=== PATIENT | female | born 2000 | race Caucasian/White ===

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

== ENCOUNTER 2020-08-30 15:11 | Emergency (ER) | payer OTHER ==
--- NOTE | 2020-08-30 15:16 | ERPHSYRPT ---
- History of Present Illness Time Seen by Provider: 08/30/20 15:16 Historian: patient, family Exam Limitations: no limitations Physician History: This is a 20-year-old white female who presents with vomiting and abdominal pain for approximately 2 to 3 days. Patient states that she consumes alcohol multiple times a day and is done so for a number of years to help ease her emotional pain from family issues. In addition, she has a history of IV drug abuse. The last time she used intravenous drugs was 9 days ago. Patient states that her symptoms are worsening over the last few days. She denies shortness of breath. She denies chest pain. Her pain is intermittently sharp in the bilateral upper quadrants and epigastric region. She is also noticed jaundice and tea colored urine. Patient has had no prior abdominal surgeries. Timing/Duration: day(s) (3) Quality: sharpness Abdominal Pain Onset Location: RUQ, LUQ, epigastric Pain Radiation: no radiation Severity of Pain-Max: moderate Severity of Pain-Current: moderate Modifying Factors: Improves With: vomiting Associated Symptoms: loss of appetite, nausea, vomiting, No fever/chills Previous symptoms: no prior history Allergies/Adverse Reactions: No Known Drug Allergies Allergy (Verified 08/30/20 15:22) Home Medications: No Reportable Medications [No Reported Medications] 08/30/20 [History] Hx Tetanus, Diphtheria Vaccination/Date Given: Yes Hx Influenza Vaccination/Date Given: Yes Hx Pneumococcal Vaccination/Date Given: No Travel Risk - International Travel Have you traveled outside of the country in past 3 weeks: No - Coronavirus Screening Are you exhibiting any of the following symptoms?: No Close contact with a COVID-19 positive Pt in past 14-21 Days: No - Review of Systems Constitutional: No Symptoms Eyes: No Symptoms Ears, Nose, & Throat: No Symptoms Respiratory: No Symptoms Cardiac: No Symptoms Abdominal/Gastrointestinal: Abdominal Pain, Nausea Genitourinary Symptoms: Other (Dark urine) Musculoskeletal: No Symptoms Skin: Other (Jaundiced) Neurological: No Symptoms Psychological: No Symptoms, No Suicidal Ideations Endocrine: No Symptoms Hematologic/Lymphatic: No Symptoms Immunological/Allergic: No Symptoms All Other Systems: Reviewed and Negative - Past Medical History Pertinent Past Medical History: No Neurological History: No Pertinent History ENT History: No Pertinent History Cardiac History: No Pertinent History Respiratory History: No Pertinent History Endocrine Medical History: No Pertinent History Musculoskeletal History: No Pertinent History GI Medical History: No Pertinent History History: No Pertinent History Psycho-Social History: No Pertinent History Female Reproductive Disorders: No Pertinent History - Past Surgical History Past Surgical History: Yes Neuro Surgical History: No Pertinent History Cardiac: No Pertinent History Respiratory: No Pertinent History Gastrointestinal: No Pertinent History Genitourinary: No Pertinent History Musculoskeletal: No Pertinent History Female Surgical History: No Pertinent History Other Surgical History: tonsils - Social History Smoking Status: Current every day smoker How long have you smoked: 4 years Exposure to second hand smoke: Yes Drug Use: none Patient Lives Alone: No - Nursing Vital Signs Nursing Vital Signs: Initial Vital Signs Blood Pressure 129/74 08/30/20 15:24 Pain Scale Pain Intensity 0 - Physical Exam General Appearance: no apparent distress, alert, anxiety Eye Exam: scleral icterus Ears, Nose, Throat Exam: normal ENT inspection, dry mucous membranes Neck Exam: normal inspection, non-tender, supple, full range of motion Respiratory Exam: normal breath sounds, lungs clear, airway intact, No chest tenderness, No respiratory distress Cardiovascular Exam: regular rate/rhythm, normal heart sounds, normal peripheral pulses Gastrointestinal/Abdomen Exam: soft, normal bowel sounds, tenderness (Bilateral upper quadrant and epigastric area), guarding, No rebound Pelvic Exam: not done Rectal Exam: not done Back Exam: normal inspection, normal range of motion, No CVA tenderness, No vertebral tenderness Extremity Exam: normal inspection, normal range of motion, pelvis stable Neurologic Exam: alert, oriented x 3, cooperative, pin chaser II-XII nml as tested, normal mood/affect, nml cerebellar function, nml station & gait, sensation nml Skin Exam: jaundice Lymphatic Exam: No adenopathy SpO2 Interpretation: normal O2 Delivery: Room Air - Course Nursing assessment & vital signs reviewed: Yes Ordered Tests: Active Orders 24 hr Category Date Time Status IV Insertion STAT Care 08/30/20 15:42 Active ABDOMEN AND PELVIS W/0 CONTRAS [CT] Stat Exams 08/30/20 15:42 Taken AMYLASE Stat Lab 08/30/20 15:35 Completed CBC W DIFF Stat Lab 08/30/20 15:35 Completed CMP Stat Lab 08/30/20 15:35 Completed CULTURE,URINE Stat Lab 08/30/20 16:10 Received ETHYL ALCOHOL Stat Lab 08/30/20 15:35 Completed HCG,QUALITATIVE URINE Stat Lab 08/30/20 15:45 Completed LIPASE Stat Lab 08/30/20 15:35 Completed Lactic Acid Stat Lab 08/30/20 15:42 Completed Manual Differential NC Stat Lab 08/30/20 15:35 Completed UA W/RFX UR CULTURE Stat Lab 08/30/20 16:10 Completed Urine Triage Profile Stat Lab 08/30/20 15:45 Completed Medication Summary Discontinued Medications Generic Name Dose Route Start Last Admin Trade Name Oscarq PRN Reason Stop Dose Admin Sodium Chloride 1,000 mls @ 999 mls/hr 08/30/20 15:42 08/30/20 17:02 Sodium Chloride 0.9% 1000 Ml IV 08/30/20 16:42 Infused .Q1H1M STA Infusion Sodium Chloride Confirm 08/30/20 15:50 Sodium Chloride 0.9% 1000 Ml Administered 08/30/20 15:51 Dose 1,000 mls @ ud .ROUTE .STK-MED ONE Ondansetron HCl 4 mg 08/30/20 15:42 08/30/20 15:56 Zofran 4 Mg/2 Ml Vial IV 08/30/20 15:43 4 mg STAT ONE Administration Ondansetron HCl Confirm 08/30/20 15:50 Zofran 4 Mg/2 Ml Vial Administered 08/30/20 15:51 Dose 4 mg .ROUTE .STK-MED ONE Pantoprazole Sodium 40 mg 08/30/20 15:42 08/30/20 15:55 Protonix 40 Mg Iv IV 08/30/20 15:43 40 mg STAT ONE Administration Pantoprazole Sodium Confirm 08/30/20 15:50 Protonix 40 Mg Iv Administered 08/30/20 15:51 Dose 40 mg IV .STK-MED ONE Potassium Chloride 10 meq 08/30/20 17:24 08/30/20 17:35 Klor Con 10 Meq PO 08/30/20 17:25 10 meq STAT ONE Administration Potassium Chloride Confirm 08/30/20 17:33 Klor Con 10 Meq Administered 08/30/20 17:34 Dose 10 meq PO .STK-MED ONE Lab/Rad Data: Laboratory Result Diagrams 08/30/20 15:35 08/30/20 15:35 Laboratory Results 08/30/20 08/30/20 08/30/20 Range/Units 16:10 15:45 15:45 WBC (4.0-10.5) K/mm3 RBC (4.1-5.4) M/mm3 Hgb (12.0-16.0) gm/dl Hct (35-47) % MCV (78-100) fl MCH (26-32) pg MCHC (32-36) g/dl RDW (11.5-14.0) % Plt Count (150-450) K/mm3 MPV (7.5-11.0) fl Sodium (137-145) mmol/L Potassium (3.5-5.1) mmol/L Chloride (98-107) mmol/L Carbon Dioxide (22-30) mmol/L Anion Gap (5-15) MEQ/L BUN (7-17) mg/dL Creatinine (0.52-1.04) mg/dL Estimated GFR ML/MIN Glucose (74-106) mg/dL Lactic Acid (0.4-2.0) Calcium (8.4-10.2) mg/dL Total Bilirubin (0.2-1.3) mg/dL AST (14-36) U/L ALT (0-35) U/L Alkaline Phosphatase (38-126) U/L Serum Total Protein (6.3-8.2) g/dL Albumin (3.5-5.0) g/dL Amylase (30-110) U/L Lipase (23-300) U/L Urine Color NEREYDA (YELLOW) Urine Appearance CLOUDY (CLEAR) Urine pH 6.0 (5-6) Ur Specific [place] 1.014 (1.005-1.025) Urine Protein NEGATIVE (Negative) Urine Ketones NEGATIVE (NEGATIVE) Urine Blood NEGATIVE (0-5) Vincent/ul Urine Nitrite NEGATIVE (NEGATIVE) Urine Bilirubin MODERATE (NEGATIVE) Urine Urobilinogen 4 (0-1) mg/dL Ur Leukocyte Esterase SMALL (NEGATIVE) Urine WBC (Auto) 16-25 (0-5) /HPF Urine RBC (Auto) 3-5 (0-2) /HPF U Epithel Cells (Auto) FEW (FEW) /HPF Urine Bacteria (Auto) RARE (NEGATIVE) /HPF Unidentified Crystals 5-10 (NEGATIVE) /HPF Urine Mucus (Auto) SLIGHT (NEGATIVE) /HPF Urine Yeast (Budding) Rare (NEGATIVE) /HPF Urine Culture Reflexed YES (NO) Urine Glucose NEGATIVE (NEGATIVE) mg/dL Urine HCG, Qual NEGATIVE (Negative) Urine Opiates Level NEGATIVE (NEGATIVE) Ur Methadone NEGATIVE (NEGATIVE) Urine Barbiturates NEGATIVE (NEGATIVE) Ur Phencyclidine (PCP) NEGATIVE (NEGATIVE) Urine Amphetamine POSITIVE (NEGATIVE) U Benzodiazepine Level POSITIVE (NEGATIVE) Urine Cocaine NEGATIVE (NEGATIVE) Urine Marijuana (THC) POSITIVE (NEGATIVE) Ethyl Alcohol (0-10) mg/dL 08/30/20 08/30/20 08/30/20 Range/Units 15:42 15:35 15:35 WBC (4.0-10.5) K/mm3 RBC (4.1-5.4) M/mm3 Hgb (12.0-16.0) gm/dl Hct (35-47) % MCV (78-100) fl MCH (26-32) pg MCHC (32-36) g/dl RDW (11.5-14.0) % Plt Count (150-450) K/mm3 MPV (7.5-11.0) fl Sodium 138 (137-145) mmol/L Potassium 3.0 L (3.5-5.1) mmol/L Chloride 101 (98-107) mmol/L Carbon Dioxide 32 H (22-30) mmol/L Anion Gap 9.1 (5-15) MEQ/L BUN 5 L (7-17) mg/dL Creatinine 0.73 (0.52-1.04) mg/dL Estimated GFR > 60.0 ML/MIN Glucose 84 (74-106) mg/dL Lactic Acid 1.2 (0.4-2.0) Calcium 9.4 (8.4-10.2) mg/dL Total Bilirubin 8.80 H (0.2-1.3) mg/dL AST 406 H (14-36) U/L ALT 1325 H (0-35) U/L Alkaline Phosphatase 191 H (38-126) U/L Serum Total Protein 8.1 (6.3-8.2) g/dL Albumin 4.1 (3.5-5.0) g/dL Amylase 54 (30-110) U/L Lipase 65 (23-300) U/L Urine Color (YELLOW) Urine Appearance (CLEAR) Urine pH (5-6) Ur Specific [place] (1.005-1.025) Urine Protein (Negative) Urine Ketones (NEGATIVE) Urine Blood (0-5) Vincent/ul Urine Nitrite (NEGATIVE) Urine Bilirubin (NEGATIVE) Urine Urobilinogen (0-1) mg/dL Ur Leukocyte Esterase (NEGATIVE) Urine WBC (Auto) (0-5) /HPF Urine RBC (Auto) (0-2) /HPF U Epithel Cells (Auto) (FEW) /HPF Urine Bacteria (Auto) (NEGATIVE) /HPF Unidentified Crystals (NEGATIVE) /HPF Urine Mucus (Auto) (NEGATIVE) /HPF Urine Yeast (Budding) (NEGATIVE) /HPF Urine Culture Reflexed (NO) Urine Glucose (NEGATIVE) mg/dL Urine HCG, Qual (Negative) Urine Opiates Level (NEGATIVE) Ur Methadone (NEGATIVE) Urine Barbiturates (NEGATIVE) Ur Phencyclidine (PCP) (NEGATIVE) Urine Amphetamine (NEGATIVE) U Benzodiazepine Level (NEGATIVE) Urine Cocaine (NEGATIVE) Urine Marijuana (THC) (NEGATIVE) Ethyl Alcohol < 10 (0-10) mg/dL 08/30/20 Range/Units 15:35 WBC 5.8 (4.0-10.5) K/mm3 RBC 4.81 (4.1-5.4) M/mm3 Hgb 15.1 (12.0-16.0) gm/dl Hct 45.1 (35-47) % MCV 93.8 (78-100) fl MCH 31.4 (26-32) pg MCHC 33.5 (32-36) g/dl RDW 14.3 H (11.5-14.0) % Plt Count 184 (150-450) K/mm3 MPV 10.5 (7.5-11.0) fl Sodium (137-145) mmol/L Potassium (3.5-5.1) mmol/L Chloride (98-107) mmol/L Carbon Dioxide (22-30) mmol/L Anion Gap (5-15) MEQ/L BUN (7-17) mg/dL Creatinine (0.52-1.04) mg/dL Estimated GFR ML/MIN Glucose (74-106) mg/dL Lactic Acid (0.4-2.0) Calcium (8.4-10.2) mg/dL Total Bilirubin (0.2-1.3) mg/dL AST (14-36) U/L ALT (0-35) U/L Alkaline Phosphatase (38-126) U/L Serum Total Protein (6.3-8.2) g/dL Albumin (3.5-5.0) g/dL Amylase (30-110) U/L Lipase (23-300) U/L Urine Color (YELLOW) Urine Appearance (CLEAR) Urine pH (5-6) Ur Specific [place] (1.005-1.025) Urine Protein (Negative) Urine Ketones (NEGATIVE) Urine Blood (0-5) Vincent/ul Urine Nitrite (NEGATIVE) Urine Bilirubin (NEGATIVE) Urine Urobilinogen (0-1) mg/dL Ur Leukocyte Esterase (NEGATIVE) Urine WBC (Auto) (0-5) /HPF Urine RBC (Auto) (0-2) /HPF U Epithel Cells (Auto) (FEW) /HPF Urine Bacteria (Auto) (NEGATIVE) /HPF Unidentified Crystals (NEGATIVE) /HPF Urine Mucus (Auto) (NEGATIVE) /HPF Urine Yeast (Budding) (NEGATIVE) /HPF Urine Culture Reflexed (NO) Urine Glucose (NEGATIVE) mg/dL Urine HCG, Qual (Negative) Urine Opiates Level (NEGATIVE) Ur Methadone (NEGATIVE) Urine Barbiturates (NEGATIVE) Ur Phencyclidine (PCP) (NEGATIVE) Urine Amphetamine (NEGATIVE) U Benzodiazepine Level (NEGATIVE) Urine Cocaine (NEGATIVE) Urine Marijuana (THC) (NEGATIVE) Ethyl Alcohol (0-10) mg/dL - Progress Progress: improved Progress Note: 08/30/20 18:04 Patient states she is feeling much better after IV hydration. She is tolerating liquid diet. CAT scan of the abdomen pelvis reveals thickening of the gallbladder wall more prominent along the margin adjacent to the liver this could be due to adjacent liver disease and related to adjacent hepatitis. There is periportal lucencies/periportal edema. This may be seen in hepatitis hepatic venous occlusion IV fluid status. Medical decision making: This patient is improving with IV hydration. She does have elevated liver function test. Her history suggests hepatitis as the diagnosis. The CAT scan findings are consistent with this. Patient desires to be discharged to home. We will repeat the laboratory data on TuesdaySeptember 01, 2020 and send the results to her primary care doctor, Dr. Castro. Patient is to call Dr. Castro's office on Tuesday to obtain the results and further management instructions. Counseled pt/family regarding: lab results, diagnosis, need for follow-up, rad results - Departure Departure Disposition: Home Clinical Impression: Elevated liver function tests, UTI (urinary tract infection), Hypokalemia, Alcohol abuse, Methamphetamine abuse, Marijuana use, Jaundice due to hepatitis Condition: Stable Critical Care Time: No Referrals: OBDULIA CASTRO MD [Primary Care Provider] - Additional Instructions: Avoid illicit drug use. Avoid alcohol ingestion. Take medication as prescribed. Drink plenty of clear liquids. Call Dr. Castro's office on Tuesday, September 01 in the morning after obtaining your blood work on September 01 in the morning. Return to the emergency department if symptoms worsen.
[2020-08-30] MEDS ORDERED: PROTONIX 40 MG IV IV ONE ×2 (15:42→15:50)
[2020-08-30] MEDS ORDERED: Sodium Chloride 0.9% 1000 ML 1,000 ML IV STA (15:42)
[2020-08-30] MEDS ORDERED: Zofran 4 MG/2 ML VIAL IV ONE (15:42)
[2020-08-30] MEDS ORDERED: Sodium Chloride 0.9% 1000 ML 1,000 ML ONE (15:50)
[2020-08-30] MEDS ORDERED: Zofran 4 MG/2 ML VIAL ONE (15:50)
[2020-08-30 16:07] LABS: Hematocrit 45.1 % (35-47); Hemoglobin 15.1 gm/dl (12.0-16.0); Mean Cell Volume 93.8 fl (78-100); Mean Corpuscular Hemoglobin 31.4 pg (26-32); Mean Corpuscular Hgb Concent. 33.5 g/dl (32-36); Mean Platelet Volume 10.5 fl (7.5-11.0); Platelet Count 184 K/mm3 (150-450); Red Blood Count 4.81 M/mm3 (4.1-5.4); Red Cell Distribution Width 14.3 % (11.5-14.0); White Blood Count 5.8 K/mm3 (4.0-10.5)
[2020-08-30 16:11] LABS: Appearance CLOUDY (CLEAR); Bacteria RARE /HPF (NEGATIVE); Bilirubin MODERATE (NEGATIVE); Blood NEGATIVE Ery/ul (0-5); Epithelial Cells FEW /HPF (FEW); Glucose NEGATIVE (NEGATIVE); Ketones NEGATIVE (NEGATIVE); Leukocyte Esterase SMALL (NEGATIVE); Mucus SLIGHT /HPF (NEGATIVE); Nitrite NEGATIVE (NEGATIVE); Protein,Urine Dip NEGATIVE (Negative); Specific Gravity 1.014 (1.005-1.025); Urobilinogen 4 mg/dL (0-1)
[2020-08-30 16:14] LABS: Budding Yeast Rare /HPF (NEGATIVE)
[2020-08-30 16:17] LABS: ALBUMIN 4.1 g/dL (3.5-5.0); ALKALINE PHOSPHATASE 191 U/L (38-126); AMYLASE 54 U/L (30-110); ANION GAP 9.1 MEQ/L (5-15); BLOOD UREA NITROGEN 5 mg/dL (7-17); CHLORIDE 101 mmol/L (98-107); Calcium 9.4 mg/dL (8.4-10.2); Carbon Dioxide 32 mmol/L (22-30); Creatinine 1 0.73 mg/dL (0.52-1.04); EST GLOMERULAR FILTRATION RATE > 60.0 ML/MIN; Glucose 84 mg/dL (74-106); LIPASE 65 U/L (23-300); SGOT/AST 406 U/L (14-36); SODIUM 138 mmol/L (137-145); Total Protein 8.1 g/dL (6.3-8.2)
[2020-08-30 16:20] LABS: Barbiturate,Urine NEGATIVE (NEGATIVE); Benzodiazepine,Urine POSITIVE (NEGATIVE); Cocaine,Urine NEGATIVE (NEGATIVE); Methadone,Urine NEGATIVE (NEGATIVE); Opiate,Urine NEGATIVE (NEGATIVE); PCP,Urine NEGATIVE (NEGATIVE); THC,Urine POSITIVE (NEGATIVE)
[2020-08-30 16:37] LABS: SGPT/ALT 1325 U/L (0-35)
[2020-08-30 17:11] LABS: Amphetamine,Urine POSITIVE (NEGATIVE)
[2020-08-30] MEDS ORDERED: Klor Con 10 MEQ PO ONE ×2 (17:24→17:33)
[2020-08-30 18:35] LABS: Basophil 4 % (0.0-1.0); Eosinophil 2 % (0.00-3.0); Lymphocytes 51 % (24-44); Monocyte 17 % (0.0-12.0); Neutrophils 26 % (36.0-66.0); Platelet Estimate NORMAL (NORMAL); Total Cells Counted 100
[2020-08-30 18:41] VITALS: BP 112/58; PULSE 75; O2SAT 98
--- NOTE | 2020-08-30 20:27 | XRAY ---
Indication: Abdomen pain. Jaundice. Multiple contiguous axial images obtained through the abdomen and pelvis without contrast as ordered. Comparison: None Lung bases demonstrates minimal dependent atelectasis. No infiltrate or effusion. Heart is not enlarged. Stomach is distended with food/fluid. Noncontrasted stomach and bowel loops appear nonobstructed. Normal appendix. Moderately distended gallbladder with circumferential wall thickening. No gallstones. Liver is enlarged measuring 19.6 cm and suggestions for periportal edema. Spleen is enlarged measuring 15.9 cm. No free fluid/air. Remaining liver, gallbladder, pancreas, spleen, adrenal glands, kidneys, ureters, bladder, uterus, and aorta appear unremarkable for noncontrast exam. Osseous structures intact. No ventral or inguinal hernias. Impression: 1. Hepatosplenomegaly. 2. Distended gallbladder with wall thickening. 3. Suspect periportal edema. Gallbladder/right upper quadrant sonogram may yield further information. Comment: Preliminary interpretation was made by [facility]. No critical discrepancy.
== END 2020-08-30 18:28 | disposition home or self-care (01) ==
LOC: ED 15:11
DX: R94.5 Abnormal results of liver function studies (principal); N39.0 Urinary tract infection, site not specified; E87.6 Hypokalemia; F10.10 Alcohol abuse, uncomplicated; F19.10 Other psychoactive substance abuse, uncomplicated; R17 Unspecified jaundice; Z79.899 Other long term (current) drug therapy; R11.2 Nausea with vomiting, unspecified; R10.11 Right upper quadrant pain; R10.12 Left upper quadrant pain; R10.13 Epigastric pain
CPT/HCPCS: 36000; 36415; 74176; 80053; 80074; 80307; 81001; 82150; 83605; 83690; 84703; 85025; 87086; 96360; 96374; 96375; 99284; J2405; A9270-GY; G0480

== ENCOUNTER 2021-03-25 11:07 | Emergency (ER) | payer OTHER ==
--- NOTE | 2021-03-25 11:43 | ERPHSYRPT ---
- History of Present Illness Historian: patient Patient Subjective Stated Complaint: Vaginal bleeding and cramping x 2 days Triage Nursing Assessment: Patient presents to room A & OX3, GCS 15. Skin slightly pale, slightly diaphoretic. Ambulatory without assistance. Slightly tachycardic. Pt reports active vaginal bleeding, states saturates 2-3 pads hour. Passing clots. Reports lower pelvic cramping as well as bilateral flank pain. Urine sample noted to be slightly cloudy, reports urinary frequency. Currently on what she believes is mensus, but did not receive depo shot in January and reports this is first possible mensus in months. Bleeding started 03/16/2021. Heavy bleeding and cramping started on 03/23/2021. Reports emesis this morning, no active vomiting at this time. Reports nausea. Patient cooperative, appears anxious. Physician History: 20 yo wf w pelvic cramping and bleeding x9 days. Pt's last Depo injection was in Oct, and she missed the January injection. She has had N/V/dysuria/diaphoresis wo hematuria/fever/diarrhea. Pain is mod-severe. Timing/Duration: other (9days) Activities at Onset: rest Quality: cramping Abdominal Pain Onset Location: suprapubic Pain Radiation: no radiation Severity of Pain-Max: severe Severity of Pain-Current: severe Modifying Factors: Improves With: nothing Associated Symptoms: diaphoresis, nausea, vomiting, No back, No chest pain, No diarrhea, No fever/chills, No fatigue, No headache, No heartburn, No loss of appetite, No neck pain, No rash, No shortness of breath, No syncope, No weakness Previous symptoms: no prior history Allergies/Adverse Reactions: No Known Drug Allergies Allergy (Verified 03/25/21 11:23) Hx Tetanus, Diphtheria Vaccination/Date Given: Yes Hx Influenza Vaccination/Date Given: Yes Hx Pneumococcal Vaccination/Date Given: No Travel Risk - International Travel Have you traveled outside of the country in past 3 weeks: No - Coronavirus Screening Are you exhibiting any of the following symptoms?: No Close contact with a COVID-19 positive Pt in past 14-21 Days: No - Vaccine Status Have you recieved a Covid-19 vaccination: No - Review of Systems Constitutional: No Symptoms Eyes: No Symptoms Ears, Nose, & Throat: No Symptoms Respiratory: No Symptoms Cardiac: No Symptoms Abdominal/Gastrointestinal: Nausea, Vomiting Genitourinary Symptoms: No Symptoms Musculoskeletal: No Symptoms Skin: No Symptoms Neurological: No Symptoms Psychological: No Symptoms Endocrine: No Symptoms Hematologic/Lymphatic: No Symptoms Immunological/Allergic: No Symptoms - Past Medical History Pertinent Past Medical History: No Neurological History: No Pertinent History ENT History: No Pertinent History Cardiac History: No Pertinent History Respiratory History: No Pertinent History Endocrine Medical History: No Pertinent History Musculoskeletal History: No Pertinent History GI Medical History: No Pertinent History History: No Pertinent History Psycho-Social History: No Pertinent History Female Reproductive Disorders: No Pertinent History - Past Surgical History Past Surgical History: Yes Neuro Surgical History: No Pertinent History Cardiac: No Pertinent History Respiratory: No Pertinent History Gastrointestinal: No Pertinent History Genitourinary: No Pertinent History Musculoskeletal: No Pertinent History Female Surgical History: No Pertinent History Other Surgical History: tonsils - Social History Smoking Status: Current every day smoker How long have you smoked: 4 years Exposure to second hand smoke: Yes Drug Use: none Patient Lives Alone: No - Female History Hx Last Menstrual Period: 03/16/2021 Hx Now: (unsure) - Nursing Vital Signs Nursing Vital Signs: Initial Vital Signs Temperature 98.0 F 03/25/21 11:16 Pulse Rate 115 H 03/25/21 11:16 Respiratory Rate 18 03/25/21 11:16 Blood Pressure 142/101 03/25/21 11:16 O2 Sat by Pulse Oximetry 100 03/25/21 11:16 Pain Scale Pain Intensity 2 - Physical Exam General Appearance: no apparent distress Eye Exam: PERRL/EOMI, eyes nml inspection Ears, Nose, Throat Exam: normal ENT inspection, TMs normal, pharynx normal, moist mucous membranes Neck Exam: normal inspection, non-tender, supple, full range of motion, No meningismus, No mass, No Brudzinski, No Kernig's Respiratory Exam: normal breath sounds, lungs clear, airway intact, No respira tory distress Cardiovascular Exam: tachycardia Gastrointestinal/Abdomen Exam: soft, tenderness (Mild-mod supra-pubic ttp) Back Exam: normal inspection, normal range of motion, No CVA tenderness Extremity Exam: normal inspection, normal range of motion, No pelvis stable Neurologic Exam: alert, oriented x 3, cooperative, 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 as tested, normal mood/affect, nml station & gait, sensation nml, No motor deficits, No sensory deficit Skin Exam: normal color, warm, dry Lymphatic Exam: No inguinal node tender (L) SpO2 Interpretation: normal SpO2: 100 O2 Delivery: Room Air Ordered Tests: Active Orders 24 hr Category Date Time Status IV Insertion STAT Care 03/25/21 11:53 Completed CBC W DIFF Stat Lab 03/25/21 11:20 Completed CULTURE,URINE Stat Lab 03/25/21 11:28 Received HCG,QUALITATIVE URINE Stat Lab 03/25/21 11:28 Completed UA W/RFX UR CULTURE Stat Lab 03/25/21 11:28 Completed Medication Summary Discontinued Medications Generic Name Dose Route Start Last Admin Trade Name Freq PRN Reason Stop Dose Admin Ceftriaxone Sodium/Dextrose 1 g in 50 mls @ 100 mls/hr 03/25/21 11:57 03/25/21 12:06 Rocephin 1 Gm-D5w 50 Ml Bag IV 03/25/21 12:26 50 mls/hr STAT STA 50 mls/hr Administration Ceftriaxone Sodium/Dextrose Confirm 03/25/21 12:02 Rocephin 1 Gm-D5w 50 Ml Bag Administered 03/25/21 12:03 Dose 1 g in 50 mls @ ud IV .STK-MED ONE Ketorolac Tromethamine 30 mg 03/25/21 11:44 03/25/21 11:46 Toradol 30 Mg Injection IV 03/25/21 11:45 30 mg STAT ONE Administration Ketorolac Tromethamine Confirm 03/25/21 11:45 Toradol 30 Mg Injection Administered 03/25/21 11:46 Dose 30 mg .ROUTE .STK-MED ONE Ondansetron HCl 4 mg 03/25/21 11:44 03/25/21 11:47 Zofran 4 Mg/2 Ml Vial IV 03/25/21 11:45 4 mg STAT ONE Administration Ondansetron HCl Confirm 03/25/21 11:46 Zofran 4 Mg/2 Ml Vial Administered 03/25/21 11:47 Dose 4 mg .ROUTE .STK-MED ONE Lab/Rad Data: Laboratory Result Diagrams 03/25/21 11:20 Laboratory Results 03/25/21 03/25/21 03/25/21 Range/Units 11:28 11:28 11:20 WBC 15.7 H (4.0-10.5) K/mm3 RBC 4.47 (4.1-5.4) M/mm3 Hgb 14.0 (12.0-16.0) gm/dl Hct 43.1 (35-47) % MCV 96.4 (78-100) fl MCH 31.3 (26-32) pg MCHC 32.5 (32-36) g/dl RDW 13.0 (11.5-14.0) % Plt Count 277 (150-450) K/mm3 MPV 9.3 (7.5-11.0) fl Gran % 83.6 H (36.0-66.0) % Eos # (Auto) 0.07 (0-0.5) Absolute Lymphs (auto) 1.29 (1.0-4.6) Absolute Monos (auto) 1.19 (0.0-1.3) Lymphocytes % 8.2 L (24.0-44.0) % Monocytes % 7.6 (0.0-12.0) % Eosinophils % 0.4 (0.00-5.0) % Basophils % 0.2 (0.0-0.4) % Absolute Granulocytes 13.07 H (1.4-6.9) Basophils # 0.03 (0-0.4) Urine Color NEREYDA (YELLOW) Urine Appearance CLOUDY (CLEAR) Urine pH 7.0 (5-6) Ur Specific [place] 1.016 (1.005-1.025) Urine Protein 100 (Negative) Urine Ketones NEGATIVE (NEGATIVE) Urine Blood LARGE (0-5) Vincent/ul Urine Nitrite NEGATIVE (NEGATIVE) Urine Bilirubin NEGATIVE (NEGATIVE) Urine Urobilinogen NEGATIVE (0-1) mg/dL Ur Leukocyte Esterase MODERATE (NEGATIVE) Urine WBC (Auto) 51-100 (0-5) /HPF Urine RBC (Auto) 51-100 (0-2) /HPF U Epithel Cells (Auto) MODERATE (FEW) /HPF Urine Bacteria (Auto) RARE (NEGATIVE) /HPF Urine Mucus (Auto) SLIGHT (NEGATIVE) /HPF Urine Culture Reflexed YES (NO) Urine Glucose NEGATIVE (NEGATIVE) mg/dL Urine HCG, Qual NEGATIVE (Negative) - Progress Progress: improved Progress Note: 03/25/21 12:20 30mg IV Toradol w improvement 1gm IV Rocephin Counseled pt/family regarding: lab results, diagnosis, need for follow-up - Departure Departure Disposition: Home Clinical Impression: UTI (urinary tract infection), Vaginal bleeding Condition: Stable Critical Care Time: No Referrals: OBDULIA CASTRO MD [Primary Care Provider] - Instructions: Urinary Tract Infection, Adult (DC), Acute Abdomen (Belly Pain), Heavy Periods (DC) Additional Instructions: Fluids Toradol for pain Start Bactrim twice a day Follow up with your family MD or Ob Return to ER for increasing pain or temperature greate than 100.5 Prescriptions: Smz/Tmp Ds Tablet [Bactrim Ds Tablet] 1 tab PO Q12H #10 tablet Ketorolac Tromethamine [Toradol] 10 mg PO BID PRN #10 tablet PRN Reason: Pain
[2021-03-25] MEDS ORDERED: TORAdol 30 mg Injection IV ONE (11:44)
[2021-03-25] MEDS ORDERED: Zofran 4 MG/2 ML VIAL IV ONE (11:44)
[2021-03-25] MEDS ORDERED: TORAdol 30 mg Injection ONE (11:45)
[2021-03-25] MEDS ORDERED: Zofran 4 MG/2 ML VIAL ONE (11:46)
[2021-03-25 11:48] LABS: Appearance CLOUDY (CLEAR); Bacteria RARE /HPF (NEGATIVE); Bilirubin NEGATIVE (NEGATIVE); Blood LARGE Ery/ul (0-5); Epithelial Cells MODERATE /HPF (FEW); Glucose NEGATIVE (NEGATIVE); Ketones NEGATIVE (NEGATIVE); Leukocyte Esterase MODERATE (NEGATIVE); Mucus SLIGHT /HPF (NEGATIVE); Nitrite NEGATIVE (NEGATIVE); Protein,Urine Dip 100 (Negative); RBC 51-100 /HPF (0-2); Specific Gravity 1.016 (1.005-1.025); Urobilinogen NEGATIVE mg/dL (0-1); WBC 51-100 /HPF (0-5)
[2021-03-25] MEDS ORDERED: ROCEPHIN 1 Gm-D5w 50 ml Bag** 1 G/50 ML IVPB IV STA (11:57)
[2021-03-25 11:58] LABS: Absolute Neutrophil Ct (ANC) 13.07 (1.4-6.9); BASOPHIL % 0.2 % (0.0-0.4); Basophil (Absolute #) 0.03 (0-0.4); Eosinophil % 0.4 % (0.00-5.0); Eosinophil (Absolute #) 0.07 (0-0.5); Hematocrit 43.1 % (35-47); Lymphocyte (Absolute #) 1.29 (1.0-4.6); Lymphocytes % 8.2 % (24.0-44.0); Mean Cell Volume 96.4 fl (78-100); Mean Corpuscular Hemoglobin 31.3 pg (26-32); Mean Corpuscular Hgb Concent. 32.5 g/dl (32-36); Mean Platelet Volume 9.3 fl (7.5-11.0); Monocyte (Absolute #) 1.19 (0.0-1.3); Monocytes % 7.6 % (0.0-12.0); Neutrophil % 83.6 % (36.0-66.0); Platelet Count 277 K/mm3 (150-450); Red Blood Count 4.47 M/mm3 (4.1-5.4); White Blood Count 15.7 K/mm3 (4.0-10.5)
[2021-03-25] MEDS ORDERED: ROCEPHIN 1 Gm-D5w 50 ml Bag** 1 G/50 ML IVPB IV ONE (12:02)
[2021-03-25 12:30] VITALS: BP 139/92; PULSE 96
[2021-03-25 21:13] VITALS: O2SAT 100
== END 2021-03-25 12:35 | disposition home or self-care (01) ==
LOC: ED 11:07
DX: N39.0 Urinary tract infection, site not specified (principal); N93.9 Abnormal uterine and vaginal bleeding, unspecified
CPT/HCPCS: 36000; 36415; 81001; 84703; 85025; 87086; 96365; 96374; 96375; 99284; J0696; J1885; J2405

== ENCOUNTER 2021-12-02 13:20 | Observation (INO) | payer OTHER ==
--- NOTE | 2021-12-02 14:12 | XRAY ---
Indication: Abscess. Targeted left breast ultrasound demonstrates a 3.8 x 5.7 x 4.7 cm irregular shaped fluid collection with low-level internal echoes and hyperemic color flow favoring clinically reported abscess. Axilla demonstrates a 1.6 x 1.2 x 1.6 cm reactive lymph node.
--- NOTE | 2021-12-02 14:18 | ERPHSYRPT ---
- History of Present Illness Time Seen by Provider: 12/02/21 13:30 Source: patient Exam Limitations: no limitations Patient Subjective Stated Complaint: Pt c/o of left breast swelling a month ago for about a week and then went down for a week and then developed a hard knot with pain and swelling which has caused redness, heat, and caused her nipple to invert which has been for the past 2 weeks Triage Nursing Assessment: Pt was brought to the ER by a friend, tachycardic, rates pain 6/10, left breast is hot to the touch, swollen, red and hard, the nipple is inverted, pt states that it has been this way for the past 2 weeks and is causing pain, pt has attempted heating pads, placed vicks on it and neosporin with no relief, pt has a 2 year old but has never breast fed, no other problems at this time Physician History: Patient is a 21-year-old female presents to our ED with complaints of left breast pain. Patient states pain started approximately 2 weeks ago and has progressed in intensity. Patient also states the breast is getting bigger. Patient has some tenderness in the left axilla. Patient reports her nipple is everted. No nipple drainage or discharge. No fever. Left breast is very tender. Symptoms are mild to moderate in intensity. Palpation reproduces symptoms. Pain improved with rest. Patient voices no other complaints concerns at this time. Timing/Duration: week(s) (2 weeks) Severity: moderate Modifying Factors: Improves With: other (Left breast palpation reproduces pain.) Associated Symptoms: denies symptoms Allergies/Adverse Reactions: No Known Drug Allergies Allergy (Verified 12/02/21 13:37) Home Medications: No Reportable Medications [No Reported Medications] 12/02/21 [History] Hx Tetanus, Diphtheria Vaccination/Date Given: Yes Hx Influenza Vaccination/Date Given: Yes Hx Pneumococcal Vaccination/Date Given: No Travel Risk - International Travel Have you traveled outside of the country in past 3 weeks: No - Coronavirus Screening Are you exhibiting any of the following symptoms?: No Close contact with a COVID-19 positive Pt in past 14-21 Days: No - Vaccine Status Have you recieved a Covid-19 vaccination: No - Review of Systems Constitutional: No Symptoms, No Fever, No Chills Eyes: No Symptoms Ears, Nose, & Throat: No Symptoms Respiratory: No Symptoms, No Cough, No Dyspnea Cardiac: No Symptoms, No Chest Pain, No Edema, No Syncope Abdominal/Gastrointestinal: No Symptoms, No Abdominal Pain, No Nausea, No Vomiting, No Diarrhea Genitourinary Symptoms: No Symptoms, No Dysuria Musculoskeletal: No Symptoms, No Back Pain, No Neck Pain Skin: No Symptoms, No Rash Neurological: No Symptoms, No Dizziness, No Focal Weakness, No Sensory Changes Psychological: No Symptoms Endocrine: No Symptoms Hematologic/Lymphatic: No Symptoms Immunological/Allergic: No Symptoms All Other Systems: Reviewed and Negative - Past Medical History Pertinent Past Medical History: No Neurological History: No Pertinent History ENT History: No Pertinent History Cardiac History: No Pertinent History Respiratory History: No Pertinent History Endocrine Medical History: No Pertinent History Musculoskeletal History: No Pertinent History GI Medical History: No Pertinent History History: No Pertinent History Psycho-Social History: No Pertinent History Female Reproductive Disorders: No Pertinent History - Past Surgical History Past Surgical History: Yes Neuro Surgical History: No Pertinent History Cardiac: No Pertinent History Respiratory: No Pertinent History Gastrointestinal: No Pertinent History Genitourinary: No Pertinent History Musculoskeletal: No Pertinent History Female Surgical History: No Pertinent History Other Surgical History: tonsils - Social History Smoking Status: Current every day smoker How long have you smoked: 4 years Exposure to second hand smoke: Yes Drug Use: none Patient Lives Alone: No - Female History Hx Now: No (depo) - Nursing Vital Signs Nursing Vital Signs: Initial Vital Signs Temperature 97.6 F 12/02/21 13:26 Pulse Rate 110 H 12/02/21 13:26 Blood Pressure 136/63 12/02/21 13:26 O2 Sat by Pulse Oximetry 99 12/02/21 13:26 Pain Scale Pain Intensity [] 6 Pain Intensity 7 - Physical Exam General Appearance: no apparent distress, alert Eye Exam: PERRL/EOMI, eyes nml inspection Ears, Nose, Throat Exam: normal ENT inspection, TMs normal, pharynx normal, moist mucous membranes Neck Exam: normal inspection, non-tender, supple, full range of motion Respiratory Exam: normal breath sounds, lungs clear, airway intact, No chest tenderness, No respiratory distress Cardiovascular Exam: regular rate/rhythm, normal heart sounds, normal peripheral pulses Gastrointestinal/Abdomen Exam: soft, normal bowel sounds, No tenderness, No distention, No mass Back Exam: normal inspection, normal range of motion, No CVA tenderness, No vertebral tenderness Extremity Exam: normal inspection, normal range of motion, pelvis stable Neurologic Exam: alert, oriented x 3, cooperative, normal mood/affect, nml cereb ellar function, nml station & gait, sensation nml, No motor deficits Skin Exam: normal color, warm, dry, other (Left breast is tender swollen mildly erythematous with a palpable mass approximate the size of a baseball), No rash Lymphatic Exam: adenopathy, axilla node tender (L) (Tenderness left axillary lymphadenopathy.) SpO2 Interpretation: normal SpO2: 99 O2 Delivery: Room Air - Course Nursing assessment & vital signs reviewed: Yes - Radiology Ultrasound Exam Other Ultrasound: tele radiology report (Targeted left breast ultrasound demonstrates a 3.8 x 5.7 x 4.7 cm irregular shaped fluid collection with low-level internal echoes and hyperemic color flow favoring clinically reported abscess. Axilla demonstrates a 1.6 x 1.2 x 1.6 reactive lymphadenopathy.) Ordered Tests: Active Orders 24 hr Category Date Time Status IV Insertion STAT Care 12/02/21 14:12 Active BREAST-UNILATERAL [US] Stat Exams 12/02/21 Completed BLOOD CULTURE Stat Lab 12/02/21 14:26 Received CBC W DIFF Stat Lab 12/02/21 14:26 Completed CMP Stat Lab 12/02/21 14:26 Completed HCG,QUALITATIVE URINE Stat Lab 12/02/21 14:12 Ordered Lactic Acid Stat Lab 12/02/21 15:00 Completed Urine Triage Profile Stat Lab 12/02/21 14:13 Ordered Medication Summary Discontinued Medications Generic Name Dose Route Start Last Admin Trade Name Freq PRN Reason Stop Dose Admin Piperacillin Sod/Tazobactam 100 mls @ 200 mls/hr 12/02/21 14:20 12/02/21 14:34 Sod 3.375 gm/ Sodium Chloride IV 12/02/21 14:49 200 mls/hr STAT ONE Administration Sodium Chloride Confirm 12/02/21 14:32 Sodium Chloride 100ml Mini-Bag Plus Administered 12/02/21 14:33 Dose 100 mls @ ud IV .STK-MED ONE Morphine Sulfate 4 mg 12/02/21 14:34 Morphine Sulfate 4 Mg/Ml Injection IV 12/02/21 14:35 STAT ONE Ondansetron HCl 4 mg 12/02/21 14:34 Ondansetron Hcl 4 Mg/2 Ml Vial IV 12/02/21 14:35 STAT ONE Piperacillin Sod/Tazobactam Sod Confirm 12/02/21 14:32 Piperacillin/Tazobactam Sodium 3.375 Gm Vial Administered 12/02/21 14:33 Dose 3.375 gm IV .STK-MED ONE Lab/Rad Data: Laboratory Result Diagrams 12/02/21 14:26 12/02/21 14:26 Laboratory Results 12/02/21 12/02/21 12/02/21 Range/Units 15:00 14:40 14:26 WBC (4.0-10.5) K/mm3 RBC (4.1-5.4) M/mm3 Hgb (12.0-16.0) gm/dl Hct (35-47) % MCV (78-100) fl MCH (26-32) pg MCHC (32-36) g/dl RDW (11.5-14.0) % Plt Count (150-450) K/mm3 MPV (7.5-11.0) fl Gran % (36.0-66.0) % Eos # (Auto) (0-0.5) Absolute Lymphs (auto) (1.0-4.6) Absolute Monos (auto) (0.0-1.3) Lymphocytes % (24.0-44.0) % Monocytes % (0.0-12.0) % Eosinophils % (0.00-5.0) % Basophils % (0.0-0.4) % Absolute Granulocytes (1.4-6.9) Basophils # (0-0.4) Sodium 140 (137-145) mmol/L Potassium 3.9 (3.5-5.1) mmol/L Chloride 108 H (98-107) mmol/L Carbon Dioxide 24 (22-30) mmol/L Anion Gap 12.3 (5-15) MEQ/L BUN 10 (7-17) mg/dL Creatinine 0.85 (0.52-1.04) mg/dL Estimated GFR > 60.0 ML/MIN Glucose 102 (74-106) mg/dL Lactic Acid 1.0 (0.4-2.0) Calcium 9.0 (8.4-10.2) mg/dL Total Bilirubin 0.30 (0.2-1.3) mg/dL AST 20 (14-36) U/L ALT 15 (0-35) U/L Alkaline Phosphatase 76 (38-126) U/L Serum Total Protein 6.7 (6.3-8.2) g/dL Albumin 3.9 (3.5-5.0) g/dL Influenza Type A Ag NEGATIVE (NEGATIVE) Influenza Type B Ag NEGATIVE (NEGATIVE) RSV (PCR) NEGATIVE (Negative) SARS-CoV-2 (PCR) NEGATIVE (NEGATIVE) 12/02/21 Range/Units 14:26 WBC 11.5 H (4.0-10.5) K/mm3 RBC 3.91 L (4.1-5.4) M/mm3 Hgb 12.8 (12.0-16.0) gm/dl Hct 38.8 (35-47) % MCV 99.2 (78-100) fl MCH 32.7 H (26-32) pg MCHC 33.0 (32-36) g/dl RDW 12.2 (11.5-14.0) % Plt Count 309 (150-450) K/mm3 MPV 9.2 (7.5-11.0) fl Gran % 68.5 H (36.0-66.0) % Eos # (Auto) 0.15 (0-0.5) Absolute Lymphs (auto) 2.42 (1.0-4.6) Absolute Monos (auto) 1.04 (0.0-1.3) Lymphocytes % 21.0 L (24.0-44.0) % Monocytes % 9.0 (0.0-12.0) % Eosinophils % 1.3 (0.00-5.0) % Basophils % 0.2 (0.0-0.4) % Absolute Granulocytes 7.91 H (1.4-6.9) Basophils # 0.02 (0-0.4) Sodium (137-145) mmol/L Potassium (3.5-5.1) mmol/L Chloride (98-107) mmol/L Carbon Dioxide (22-30) mmol/L Anion Gap (5-15) MEQ/L BUN (7-17) mg/dL Creatinine (0.52-1.04) mg/dL Estimated GFR ML/MIN Glucose (74-106) mg/dL Lactic Acid (0.4-2.0) Calcium (8.4-10.2) mg/dL Total Bilirubin (0.2-1.3) mg/dL AST (14-36) U/L ALT (0-35) U/L Alkaline Phosphatase (38-126) U/L Serum Total Protein (6.3-8.2) g/dL Albumin (3.5-5.0) g/dL Influenza Type A Ag (NEGATIVE) Influenza Type B Ag (NEGATIVE) RSV (PCR) (Negative) SARS-CoV-2 (PCR) (NEGATIVE) - Progress Progress: improved Progress Note: Case discussed with Dr. Shankar Dean who is planning on taking patient to the OR tomorrow afternoon. We will admit patient to medicine service initiate antibiotics. Covid test pending. Plan of care discussed with patient. She agrees to admission [facility] for further evaluation and treatment. 12/02/21 14:29 Covid test negative. Case discussed with Dr. Avelar who accepts admission to observation. 12/02/21 16:00 Counseled pt/family regarding: lab results, diagnosis, rad results - Departure Departure Disposition: Observation Clinical Impression: Breast abscess, Leukocytosis Condition: Stable Critical Care Time: No Referrals: KRYS AVELAR MD [Primary Care Provider] - Follow up/PCP as directed
[2021-12-02] MEDS ORDERED: Zosyn 3.375 GM Vial 3.375 GM in Sodium Chloride 100ML MINI-BAG PLUS 100 ML IV ONE (14:20)
[2021-12-02] MEDS ORDERED: Sodium Chloride 100ML MINI-BAG PLUS 100 ML IV ONE (14:32)
[2021-12-02] MEDS ORDERED: Zosyn 3.375 GM Vial IV ONE (14:32)
[2021-12-02] MEDS ORDERED: MORPHINE SULFATE 4 MG INJ IV ONE (14:34)
[2021-12-02] MEDS ORDERED: Zofran 4 MG/2 ML VIAL IV ONE (14:34)
[2021-12-02 14:38] LABS: Absolute Neutrophil Ct (ANC) 7.91 (1.4-6.9); Basophil (Absolute #) 0.02 (0-0.4); Eosinophil % 1.3 % (0.00-5.0); Eosinophil (Absolute #) 0.15 (0-0.5); Hematocrit 38.8 % (35-47); Hemoglobin 12.8 gm/dl (12.0-16.0); Lymphocyte (Absolute #) 2.42 (1.0-4.6); Mean Cell Volume 99.2 fl (78-100); Mean Corpuscular Hemoglobin 32.7 pg (26-32); Mean Platelet Volume 9.2 fl (7.5-11.0); Monocyte (Absolute #) 1.04 (0.0-1.3); Neutrophil % 68.5 % (36.0-66.0); Platelet Count 309 K/mm3 (150-450); Red Blood Count 3.91 M/mm3 (4.1-5.4); Red Cell Distribution Width 12.2 % (11.5-14.0); White Blood Count 11.5 K/mm3 (4.0-10.5)
[2021-12-02 15:02] LABS: ALBUMIN 3.9 g/dL (3.5-5.0); ALKALINE PHOSPHATASE 76 U/L (38-126); ANION GAP 12.3 MEQ/L (5-15); BLOOD UREA NITROGEN 10 mg/dL (7-17); CHLORIDE 108 mmol/L (98-107); Carbon Dioxide 24 mmol/L (22-30); Creatinine 1 0.85 mg/dL (0.52-1.04); EST GLOMERULAR FILTRATION RATE > 60.0 ML/MIN; Glucose 102 mg/dL (74-106); Potassium 3.9 mmol/L (3.5-5.1); SGOT/AST 20 U/L (14-36); SGPT/ALT 15 U/L (0-35); SODIUM 140 mmol/L (137-145); Total Protein 6.7 g/dL (6.3-8.2)
[2021-12-02 15:31] LABS: INFLUENZA A NEGATIVE (NEGATIVE); INFLUENZA B NEGATIVE (NEGATIVE); RESPIRATORY SYNCTIAL VIRUS NEGATIVE (Negative); SARS-CoV-2 Xpert Express NEGATIVE (NEGATIVE)
[2021-12-02] MEDS ORDERED: Zofran 4 MG/2 ML VIAL ONE (16:01)
[2021-12-02] MEDS ORDERED: MORPHINE SULFATE 4 MG INJ ONE (16:01)
[2021-12-02] MEDS ORDERED: Zofran 4 MG/2 ML VIAL IV PRN (16:49)
[2021-12-02 16:57] LABS: Barbiturate,Urine NEGATIVE (NEGATIVE); Benzodiazepine,Urine NEGATIVE (NEGATIVE); Cocaine,Urine NEGATIVE (NEGATIVE); Methadone,Urine NEGATIVE (NEGATIVE); Opiate,Urine NEGATIVE (NEGATIVE); PCP,Urine NEGATIVE (NEGATIVE); THC,Urine POSITIVE (NEGATIVE)
[2021-12-02] MEDS ORDERED: Nicoderm CQ 21 MG TOP SCH (17:30)
[2021-12-02] MEDS: Sodium Chloride 0.9% 1000 ML 1,000 ML IV SCH (17:30)
[2021-12-02 17:44] LABS: Amphetamine,Urine POSITIVE (NEGATIVE)
[2021-12-02] MEDS: MORPHINE SULFATE 4 MG INJ IV PRN ×2 (19:44→23:57)
--- NOTE | 2021-12-02 20:08 | PCM.CONS ---
History of Present Illness - Reason for Consult Chief Complaint: BREAST ABSCESS, BREAST PAIN, LEUKOCYTOSIS Requesting Provider: KRYS AVELAR Consulting Provider: EDA FERRERA MD History of Present Illness: hx per chart review d/w pt and mother at bedside. 21yo female 3 years . hasn't breast fed in years. 1 mo ago some swelling and pain left breast. got a litte better. then get worse again. worsening pain, redness swelling so to ED. no nippled discharge. ":- History of Present Illness Time Seen by Provider: 12/02/21 13:30 Source: patient Exam Limitations: no limitations Patient Subjective Stated Complaint: Pt c/o of left breast swelling a month ago for about a week and then went down for a week and then developed a hard knot with pain and swelling which has caused redness, heat, and caused her nipple to invert which has been for the past 2 weeks Triage Nursing Assessment: Pt was brought to the ER by a friend, tachycardic, rates pain 6/10, left breast is hot to the touch, swollen, red and hard, the nipple is inverted, pt states that it has been this way for the past 2 weeks and is causing pain, pt has attempted heating pads, placed vicks on it and neosporin with no relief, pt has a 2 year old but has never breast fed, no other problems at this time Physician History: Patient is a 21-year-old female presents to our ED with complaints of left breast pain. Patient states pain started approximately 2 weeks ago and has progressed in intensity. Patient also states the breast is getting bigger. Patient has some tenderness in the left axilla. Patient reports her nipple is everted. No nipple drainage or discharge. No fever. Left breast is very tender. Symptoms are mild to moderate in intensity. Palpation reproduces symptoms. Pain improved with rest. Patient voices no other complaints concerns at this time. Timing/Duration: week(s) (2 weeks) Severity: moderate Modifying Factors: Improves With: other (Left breast palpation reproduces pain.) Associated Symptoms: denies symptoms Allergies/Adverse Reactions: No Known Drug Allergies Allergy (Verified 12/02/21 13:37) Home Medications: No Reportable Medications [No Reported Medications] 12/02/21 [History] Hx Tetanus, Diphtheria Vaccination/Date Given: Yes Hx Influenza Vaccination/Date Given: Yes Hx Pneumococcal Vaccination/Date Given: No Travel Risk - International Travel Have you traveled outside of the country in past 3 weeks: No - Coronavirus Screening Are you exhibiting any of the following symptoms?: No Close contact with a COVID-19 positive Pt in past 14-21 Days: No - Vaccine Status Have you recieved a Covid-19 vaccination: No - Review of Systems Constitutional: No Symptoms, No Fever, No Chills Eyes: No Symptoms Ears, Nose, & Throat: No Symptoms Respiratory: No Symptoms, No Cough, No Dyspnea Cardiac: No Symptoms, No Chest Pain, No Edema, No Syncope Abdominal/Gastrointestinal: No Symptoms, No Abdominal Pain, No Nausea, No Vomiting, No Diarrhea Genitourinary Symptoms: No Symptoms, No Dysuria Musculoskeletal: No Symptoms, No Back Pain, No Neck Pain Skin: No Symptoms, No Rash Neurological: No Symptoms, No Dizziness, No Focal Weakness, No Sensory Changes Psychological: No Symptoms Endocrine: No Symptoms Hematologic/Lymphatic: No Symptoms Immunological/Allergic: No Symptoms All Other Systems: Reviewed and Negative - Past Medical History Pertinent Past Medical History: No Neurological History: No Pertinent History ENT History: No Pertinent History Cardiac History: No Pertinent History Respiratory History: No Pertinent History Endocrine Medical History: No Pertinent History Musculoskeletal History: No Pertinent History GI Medical History: No Pertinent History History: No Pertinent History Psycho-Social History: No Pertinent History Female Reproductive Disorders: No Pertinent History - Past Surgical History Past Surgical History: Yes Neuro Surgical History: No Pertinent History Cardiac: No Pertinent History Respiratory: No Pertinent History Gastrointestinal: No Pertinent History Genitourinary: No Pertinent History Musculoskeletal: No Pertinent History Female Surgical History: No Pertinent History Other Surgical History: tonsils - Social History Smoking Status: Current every day smoker How long have you smoked: 4 years Exposure to second hand smoke: Yes Drug Use: none Patient Lives Alone: No - Female History Hx Now: No (depo) " Medications & Allergies Home Medications: Home Medication List No Reportable Medications [No Reported Medications] 12/02/21 [History Confirmed 12/02/21] Allergies/Adverse Reactions: Allergies Allergy/AdvReac Type Severity Reaction Status Date / Time No Known Drug Allergies Allergy Verified 12/02/21 13:37 - Past Medical History Past Medical History: No Neurological History: No Pertinent History ENT History: No Pertinent History Cardiac History: No Pertinent History Respiratory History: No Pertinent History Endocrine Medical History: No Pertinent History Musculoskelatal History: No Pertinent History GI Medical History: No Pertinent History History: No Pertinent History Pyscho-Social History: No Pertinent History Reproductive Disorders: No Pertinent History - Female History Are you now?: No - Past Surgical History Past Surgical History: Yes Neuro Surgical History: No Pertinent History Cardiac History: No Pertinent History Respiratory Surgery: No Pertinent History GI Surgical History: No Pertinent History Genitourinary Surgical Hx: No Pertinent History Musculskeletal Surgical Hx: No Pertinent History Female Surgical History: No Pertinent History Other Surgical History: tonsils - Social History Smoking Status: Current every day smoker How long have you smoked: 5 YEARS Exposure to second hand smoke: No Alcohol: Rarely Drug Use: none - Physical Exam Vital Signs: Vital Signs - 24 hr Temp Pulse Resp BP Pulse Ox 12/02/21 19:56 97.1 F 95 H 17 130/81 98 12/02/21 19:52 97.1 F 95 H 17 130/81 98 12/02/21 16:59 96.5 F 98 H 16 133/72 98 12/02/21 16:50 96.5 F 98 H 16 133/72 98 12/02/21 16:49 99 12/02/21 16:01 99 12/02/21 16:00 96 H 16 136/87 97 12/02/21 15:15 92 H 117/77 98 12/02/21 14:00 100 H 20 121/82 98 12/02/21 13:26 97.6 F 110 H 136/63 99 General Appearance: no apparent distress Neurologic Exam: alert, oriented x 3, normal mood/affect Eye Exam: eyes nml inspection, No scleral icterus Neck Exam: normal inspection Respiratory Exam: No respiratory distress Cardiovascular Exam: regular rate/rhythm Gastrointestinal/Abdomen Exam: soft, No tenderness Pelvic Exam: deferred Rectal Exam: deferred Extremity Exam: normal inspection Skin Exam: warm, dry Additional Findings: 12/02/21 20:07 Left breast some erythema, nipple inversion, palpable fullness central retroareolar ~6cm. Results - Labs Lab/Micro Results: Lab Results-Last 24 Hours 12/02/21 12/02/21 12/02/21 Range/Units 14:26 14:26 14:40 WBC 11.5 H (4.0-10.5) K/mm3 RBC 3.91 L (4.1-5.4) M/mm3 Hgb 12.8 (12.0-16.0) gm/dl Hct 38.8 (35-47) % MCV 99.2 (78-100) fl MCH 32.7 H (26-32) pg MCHC 33.0 (32-36) g/dl RDW 12.2 (11.5-14.0) % Plt Count 309 (150-450) K/mm3 MPV 9.2 (7.5-11.0) fl Gran % 68.5 H (36.0-66.0) % Eos # (Auto) 0.15 (0-0.5) Absolute Lymphs (auto) 2.42 (1.0-4.6) Absolute Monos (auto) 1.04 (0.0-1.3) Lymphocytes % 21.0 L (24.0-44.0) % Monocytes % 9.0 (0.0-12.0) % Eosinophils % 1.3 (0.00-5.0) % Basophils % 0.2 (0.0-0.4) % Absolute Granulocytes 7.91 H (1.4-6.9) Basophils # 0.02 (0-0.4) Sodium 140 (137-145) mmol/L Potassium 3.9 (3.5-5.1) mmol/L Chloride 108 H (98-107) mmol/L Carbon Dioxide 24 (22-30) mmol/L Anion Gap 12.3 (5-15) MEQ/L BUN 10 (7-17) mg/dL Creatinine 0.85 (0.52-1.04) mg/dL Estimated GFR > 60.0 ML/MIN Glucose 102 (74-106) mg/dL Lactic Acid (0.4-2.0) Calcium 9.0 (8.4-10.2) mg/dL Total Bilirubin 0.30 (0.2-1.3) mg/dL AST 20 (14-36) U/L ALT 15 (0-35) U/L Alkaline Phosphatase 76 (38-126) U/L Serum Total Protein 6.7 (6.3-8.2) g/dL Albumin 3.9 (3.5-5.0) g/dL Urine HCG, Qual (Negative) Urine Opiates Level (NEGATIVE) Ur Methadone (NEGATIVE) Urine Barbiturates (NEGATIVE) Ur Phencyclidine (PCP) (NEGATIVE) Urine Amphetamine (NEGATIVE) U Benzodiazepine Level (NEGATIVE) Urine Cocaine (NEGATIVE) Urine Marijuana (THC) (NEGATIVE) Influenza Type A Ag NEGATIVE (NEGATIVE) Influenza Type B Ag NEGATIVE (NEGATIVE) RSV (PCR) NEGATIVE (Negative) SARS-CoV-2 (PCR) NEGATIVE (NEGATIVE) 12/02/21 12/02/21 12/02/21 Range/Units 15:00 16:10 16:10 WBC (4.0-10.5) K/mm3 RBC (4.1-5.4) M/mm3 Hgb (12.0-16.0) gm/dl Hct (35-47) % MCV (78-100) fl MCH (26-32) pg MCHC (32-36) g/dl RDW (11.5-14.0) % Plt Count (150-450) K/mm3 MPV (7.5-11.0) fl Gran % (36.0-66.0) % Eos # (Auto) (0-0.5) Absolute Lymphs (auto) (1.0-4.6) Absolute Monos (auto) (0.0-1.3) Lymphocytes % (24.0-44.0) % Monocytes % (0.0-12.0) % Eosinophils % (0.00-5.0) % Basophils % (0.0-0.4) % Absolute Granulocytes (1.4-6.9) Basophils # (0-0.4) Sodium (137-145) mmol/L Potassium (3.5-5.1) mmol/L Chloride (98-107) mmol/L Carbon Dioxide (22-30) mmol/L Anion Gap (5-15) MEQ/L BUN (7-17) mg/dL Creatinine (0.52-1.04) mg/dL Estimated GFR ML/MIN Glucose (74-106) mg/dL Lactic Acid 1.0 (0.4-2.0) Calcium (8.4-10.2) mg/dL Total Bilirubin (0.2-1.3) mg/dL AST (14-36) U/L ALT (0-35) U/L Alkaline Phosphatase (38-126) U/L Serum Total Protein (6.3-8.2) g/dL Albumin (3.5-5.0) g/dL Urine HCG, Qual NEGATIVE (Negative) Urine Opiates Level NEGATIVE (NEGATIVE) Ur Methadone NEGATIVE (NEGATIVE) Urine Barbiturates NEGATIVE (NEGATIVE) Ur Phencyclidine (PCP) NEGATIVE (NEGATIVE) Urine Amphetamine POSITIVE (NEGATIVE) U Benzodiazepine Level NEGATIVE (NEGATIVE) Urine Cocaine NEGATIVE (NEGATIVE) Urine Marijuana (THC) POSITIVE (NEGATIVE) Influenza Type A Ag (NEGATIVE) Influenza Type B Ag (NEGATIVE) RSV (PCR) (Negative) SARS-CoV-2 (PCR) (NEGATIVE) - Radiology Impressions Radiology Exams & Impressions: Radiology Procedures Category Date Time Status BREAST-UNILATERAL [US] Stat Exams 12/02/21 Completed Assessment/Plan (1) Breast abscess Current Visit: Yes Status: Acute Assessment & Plan: 21yo female with left breast abscess. offered pt percutaneous drainage but likely to need repeat drainages and pt prefers to have I&D. all questions answered. pt understands risk of wound, fistula, etc. -to OR 12/03 for I&D left breast abscess. Code(s): N61.1 - ABSCESS OF THE BREAST AND NIPPLE
[2021-12-02] MEDS: Zosyn 3.375 GM Vial 3.375 GM in Sodium Chloride 100ML MINI-BAG PLUS 100 ML IV SCH (23:12)
[2021-12-03] MEDS: Sodium Chloride 0.9% 1000 ML 1,000 ML IV SCH ×2 (04:01→14:38)
[2021-12-03] MEDS: MORPHINE SULFATE 4 MG INJ IV PRN (05:27)
[2021-12-03] MEDS: Zosyn 3.375 GM Vial 3.375 GM in Sodium Chloride 100ML MINI-BAG PLUS 100 ML IV SCH ×2 (05:27→13:25)
[2021-12-03 05:29] LABS: Absolute Neutrophil Ct (ANC) 6.84 (1.4-6.9); Basophil (Absolute #) 0.02 (0-0.4); Eosinophil % 1.5 % (0.00-5.0); Eosinophil (Absolute #) 0.17 (0-0.5); Hematocrit 38.1 % (35-47); Hemoglobin 12.3 gm/dl (12.0-16.0); Lymphocyte (Absolute #) 3.03 (1.0-4.6); Lymphocytes % 27.5 % (24.0-44.0); Mean Corpuscular Hemoglobin 32.3 pg (26-32); Mean Corpuscular Hgb Concent. 32.3 g/dl (32-36); Mean Platelet Volume 9.1 fl (7.5-11.0); Monocyte (Absolute #) 0.94 (0.0-1.3); Monocytes % 8.5 % (0.0-12.0); Neutrophil % 62.3 % (36.0-66.0); Platelet Count 301 K/mm3 (150-450); Red Blood Count 3.81 M/mm3 (4.1-5.4); Red Cell Distribution Width 12.4 % (11.5-14.0)
[2021-12-03 06:02] LABS: ALBUMIN 3.7 g/dL (3.5-5.0); ALKALINE PHOSPHATASE 74 U/L (38-126); ANION GAP 10.5 MEQ/L (5-15); BLOOD UREA NITROGEN 9 mg/dL (7-17); CHLORIDE 109 mmol/L (98-107); Calcium 8.6 mg/dL (8.4-10.2); Carbon Dioxide 23 mmol/L (22-30); Creatinine 1 0.74 mg/dL (0.52-1.04); EST GLOMERULAR FILTRATION RATE > 60.0 ML/MIN; Glucose 94 mg/dL (74-106); Potassium 3.6 mmol/L (3.5-5.1); SGOT/AST 19 U/L (14-36); SGPT/ALT 14 U/L (0-35); SODIUM 139 mmol/L (137-145); Total Protein 6.9 g/dL (6.3-8.2)
[2021-12-03] MEDS ORDERED: Sensorcaine 0.25% 10 ML ONE (06:58)
[2021-12-03] MEDS ORDERED: Lactated Ringers 1,000 ML IV ONE (06:58)
[2021-12-03] MEDS ORDERED: CEFAZOLIN 2 GM-D5W BAG** 2 GM/50 ML ML IV SCH (08:30)
[2021-12-03] MEDS ORDERED: Lactated Ringers 1,000 ML IV SCH (08:30)
[2021-12-03] MEDS ORDERED: Versed 2 MG/2 ML Injection ONE (11:34)
[2021-12-03] MEDS ORDERED: Xylocaine-Mpf 2% 5 Ml Vial ONE (11:34)
[2021-12-03] MEDS ORDERED: DIPRIVAN 200 MG/20 ML IV ONE (11:34)
[2021-12-03] MEDS ORDERED: SUBLIMAZE 100 MCG/2 ML ONE ×3 (11:35→12:15)
[2021-12-03] MEDS ORDERED: DILAUDID 2 MG INJECTION ONE (12:16)
[2021-12-03] MEDS ORDERED: Zofran 4 MG/2 ML VIAL ONE (12:18)
[2021-12-03] MEDS ORDERED: Decadron 4 MG INJ ONE (12:18)
[2021-12-03] MEDS ORDERED: TORAdol 30 mg Injection ONE (12:21)
--- NOTE | 2021-12-03 12:40 | PCM.HP ---
History of Present Illness - Chief Complaint Chief Complaint: BREAST ABSCESS, BREAST PAIN, LEUKOCYTOSIS History of Present Illness: is a 21 year old female.presents to our ED with complaints of left breast pain. Patient states pain started approximately 2 weeks ago and has progressed in intensity. Patient also states the breast is getting bigger. Patient has some tenderness in the left axilla. Patient reports her nipple is everted. No nipple drainage or discharge. No fever. Left breast is very tender. Symptoms are mild to moderate in intensity. Palpation reproduces symptoms. Pain improved with rest. Patient voices no other complaints concerns at this time. - Review of Systems Constitutional: No Fever, No Chills Eyes: No Symptoms Ears, Nose, & Throat: No Symptoms Respiratory: No Cough, No Short Of Breath Cardiac: No Chest Pain, No Edema, No Syncope Abdominal/Gastrointestinal: No Abdominal Pain, No Nausea, No Vomiting, No Diarrhea Genitourinary Symptoms: No Dysuria Musculoskeletal: No Back Pain, No Neck Pain Skin: Cellulitis (left breast), No Rash Neurological: No Dizziness, No Focal Weakness, No Sensory Changes Psychological: No Symptoms Endocrine: No Symptoms Hematologic/Lymphatic: No Symptoms Immunological/Allergic: No Symptoms Medications & Allergies Home Medications: Home Medication List No Reportable Medications [No Reported Medications] 12/02/21 [History Confirmed 12/02/21] Allergies/Adverse Reactions: Allergies Allergy/AdvReac Type Severity Reaction Status Date / Time No Known Drug Allergies Allergy Verified 12/02/21 13:37 - Past Medical History Past Medical History: No Neurological History: No Pertinent History ENT History: No Pertinent History Cardiac History: No Pertinent History Respiratory History: No Pertinent History Endocrine Medical History: No Pertinent History Musculoskelatal History: No Pertinent History GI Medical History: No Pertinent History History: No Pertinent History Pyscho-Social History: No Pertinent History Reproductive Disorders: No Pertinent History - Female History Are you now?: No - Past Surgical History Past Surgical History: Yes Neuro Surgical History: No Pertinent History Cardiac History: No Pertinent History Respiratory Surgery: No Pertinent History GI Surgical History: No Pertinent History Genitourinary Surgical Hx: No Pertinent History Musculskeletal Surgical Hx: No Pertinent History Female Surgical History: No Pertinent History Other Surgical History: tonsils - Social History Smoking Status: Current every day smoker How long have you smoked: 5 YEARS Exposure to second hand smoke: No Alcohol: Rarely Drug Use: none - Physical Exam Vital Signs: Vital Signs - 24 hr Temp Pulse Resp BP Pulse Ox 12/03/21 09:20 97.0 F 92 H 16 121/79 98 12/03/21 08:00 97.0 F 92 H 16 121/79 98 12/03/21 04:00 97.4 F 93 H 19 121/82 97 12/02/21 23:22 97.9 F 96 H 16 125/87 99 12/02/21 19:56 97.1 F 95 H 17 130/81 98 12/02/21 19:52 97.1 F 95 H 17 130/81 98 12/02/21 16:59 96.5 F 98 H 16 133/72 98 12/02/21 16:50 96.5 F 98 H 16 133/72 98 12/02/21 16:49 99 12/02/21 16:01 99 12/02/21 16:00 96 H 16 136/87 97 12/02/21 15:15 92 H 117/77 98 12/02/21 14:00 100 H 20 121/82 98 12/02/21 13:26 97.6 F 110 H 136/63 99 General Appearance: no apparent distress, alert Neurologic Exam: alert, oriented x 3, cooperative, normal mood/affect, nml cerebellar function, nml station & gait, sensation nml, No motor deficits Eye Exam: PERRL/EOMI, eyes nml inspection Ears, Nose, Throat Exam: normal ENT inspection, TMs normal, pharynx normal, moist mucous membranes Neck Exam: normal inspection, non-tender, supple, full range of motion Respiratory Exam: normal breath sounds, lungs clear, No respiratory distress Cardiovascular Exam: regular rate/rhythm, normal heart sounds, normal peripheral pulses Gastrointestinal/Abdomen Exam: soft, normal bowel sounds, No tenderness, No mass Back Exam: normal inspection, normal range of motion, No CVA tenderness, No vertebral tenderness Extremity Exam: normal inspection, normal range of motion, pelvis stable Skin Exam: normal color, warm, dry, other (left breast abscess), No rash Lymphatic Exam: No adenopathy Results - Labs Lab/Micro Results: Lab Results-Last 24 Hours 12/02/21 12/02/21 12/02/21 Range/Units 14:26 14:26 14:40 WBC 11.5 H (4.0-10.5) K/mm3 RBC 3.91 L (4.1-5.4) M/mm3 Hgb 12.8 (12.0-16.0) gm/dl Hct 38.8 (35-47) % MCV 99.2 (78-100) fl MCH 32.7 H (26-32) pg MCHC 33.0 (32-36) g/dl RDW 12.2 (11.5-14.0) % Plt Count 309 (150-450) K/mm3 MPV 9.2 (7.5-11.0) fl Gran % 68.5 H (36.0-66.0) % Eos # (Auto) 0.15 (0-0.5) Absolute Lymphs (auto) 2.42 (1.0-4.6) Absolute Monos (auto) 1.04 (0.0-1.3) Lymphocytes % 21.0 L (24.0-44.0) % Monocytes % 9.0 (0.0-12.0) % Eosinophils % 1.3 (0.00-5.0) % Basophils % 0.2 (0.0-0.4) % Absolute Granulocytes 7.91 H (1.4-6.9) Basophils # 0.02 (0-0.4) Sodium 140 (137-145) mmol/L Potassium 3.9 (3.5-5.1) mmol/L Chloride 108 H (98-107) mmol/L Carbon Dioxide 24 (22-30) mmol/L Anion Gap 12.3 (5-15) MEQ/L BUN 10 (7-17) mg/dL Creatinine 0.85 (0.52-1.04) mg/dL Estimated GFR > 60.0 ML/MIN Glucose 102 (74-106) mg/dL Lactic Acid (0.4-2.0) Calcium 9.0 (8.4-10.2) mg/dL Total Bilirubin 0.30 (0.2-1.3) mg/dL AST 20 (14-36) U/L ALT 15 (0-35) U/L Alkaline Phosphatase 76 (38-126) U/L Serum Total Protein 6.7 (6.3-8.2) g/dL Albumin 3.9 (3.5-5.0) g/dL Urine HCG, Qual (Negative) Urine Opiates Level (NEGATIVE) Ur Methadone (NEGATIVE) Urine Barbiturates (NEGATIVE) Ur Phencyclidine (PCP) (NEGATIVE) Urine Amphetamine (NEGATIVE) U Benzodiazepine Level (NEGATIVE) Urine Cocaine (NEGATIVE) Urine Marijuana (THC) (NEGATIVE) Influenza Type A Ag NEGATIVE (NEGATIVE) Influenza Type B Ag NEGATIVE (NEGATIVE) RSV (PCR) NEGATIVE (Negative) SARS-CoV-2 (PCR) NEGATIVE (NEGATIVE) 12/02/21 12/02/21 12/02/21 Range/Units 15:00 16:10 16:10 WBC (4.0-10.5) K/mm3 RBC (4.1-5.4) M/mm3 Hgb (12.0-16.0) gm/dl Hct (35-47) % MCV (78-100) fl MCH (26-32) pg MCHC (32-36) g/dl RDW (11.5-14.0) % Plt Count (150-450) K/mm3 MPV (7.5-11.0) fl Gran % (36.0-66.0) % Eos # (Auto) (0-0.5) Absolute Lymphs (auto) (1.0-4.6) Absolute Monos (auto) (0.0-1.3) Lymphocytes % (24.0-44.0) % Monocytes % (0.0-12.0) % Eosinophils % (0.00-5.0) % Basophils % (0.0-0.4) % Absolute Granulocytes (1.4-6.9) Basophils # (0-0.4) Sodium (137-145) mmol/L Potassium (3.5-5.1) mmol/L Chloride (98-107) mmol/L Carbon Dioxide (22-30) mmol/L Anion Gap (5-15) MEQ/L BUN (7-17) mg/dL Creatinine (0.52-1.04) mg/dL Estimated GFR ML/MIN Glucose (74-106) mg/dL Lactic Acid 1.0 (0.4-2.0) Calcium (8.4-10.2) mg/dL Total Bilirubin (0.2-1.3) mg/dL AST (14-36) U/L ALT (0-35) U/L Alkaline Phosphatase (38-126) U/L Serum Total Protein (6.3-8.2) g/dL Albumin (3.5-5.0) g/dL Urine HCG, Qual NEGATIVE (Negative) Urine Opiates Level NEGATIVE (NEGATIVE) Ur Methadone NEGATIVE (NEGATIVE) Urine Barbiturates NEGATIVE (NEGATIVE) Ur Phencyclidine (PCP) NEGATIVE (NEGATIVE) Urine Amphetamine POSITIVE (NEGATIVE) U Benzodiazepine Level NEGATIVE (NEGATIVE) Urine Cocaine NEGATIVE (NEGATIVE) Urine Marijuana (THC) POSITIVE (NEGATIVE) Influenza Type A Ag (NEGATIVE) Influenza Type B Ag (NEGATIVE) RSV (PCR) (Negative) SARS-CoV-2 (PCR) (NEGATIVE) 12/03/21 12/03/21 Range/Units 05:20 05:20 WBC 11.0 H (4.0-10.5) K/mm3 RBC 3.81 L (4.1-5.4) M/mm3 Hgb 12.3 (12.0-16.0) gm/dl Hct 38.1 (35-47) % MCV 100.0 (78-100) fl MCH 32.3 H (26-32) pg MCHC 32.3 (32-36) g/dl RDW 12.4 (11.5-14.0) % Plt Count 301 (150-450) K/mm3 MPV 9.1 (7.5-11.0) fl Gran % 62.3 (36.0-66.0) % Eos # (Auto) 0.17 (0-0.5) Absolute Lymphs (auto) 3.03 (1.0-4.6) Absolute Monos (auto) 0.94 (0.0-1.3) Lymphocytes % 27.5 (24.0-44.0) % Monocytes % 8.5 (0.0-12.0) % Eosinophils % 1.5 (0.00-5.0) % Basophils % 0.2 (0.0-0.4) % Absolute Granulocytes 6.84 (1.4-6.9) Basophils # 0.02 (0-0.4) Sodium 139 (137-145) mmol/L Potassium 3.6 (3.5-5.1) mmol/L Chloride 109 H (98-107) mmol/L Carbon Dioxide 23 (22-30) mmol/L Anion Gap 10.5 (5-15) MEQ/L BUN 9 (7-17) mg/dL Creatinine 0.74 (0.52-1.04) mg/dL Estimated GFR > 60.0 ML/MIN Glucose 94 (74-106) mg/dL Lactic Acid (0.4-2.0) Calcium 8.6 (8.4-10.2) mg/dL Total Bilirubin 0.40 (0.2-1.3) mg/dL AST 19 (14-36) U/L ALT 14 (0-35) U/L Alkaline Phosphatase 74 (38-126) U/L Serum Total Protein 6.9 (6.3-8.2) g/dL Albumin 3.7 (3.5-5.0) g/dL Urine HCG, Qual (Negative) Urine Opiates Level (NEGATIVE) Ur Methadone (NEGATIVE) Urine Barbiturates (NEGATIVE) Ur Phencyclidine (PCP) (NEGATIVE) Urine Amphetamine (NEGATIVE) U Benzodiazepine Level (NEGATIVE) Urine Cocaine (NEGATIVE) Urine Marijuana (THC) (NEGATIVE) Influenza Type A Ag (NEGATIVE) Influenza Type B Ag (NEGATIVE) RSV (PCR) (Negative) SARS-CoV-2 (PCR) (NEGATIVE) - Radiology Impressions Radiology Exams & Impressions: Radiology Procedures Category Date Time Status BREAST-UNILATERAL [US] Stat Exams 12/02/21 Completed Assessment/Plan (1) Breast abscess Current Visit: Yes Status: Acute Assessment & Plan: Chief Complaint Diagnosis BREAST ABSCESS, BREAST PAIN, LEUKOCYTOSIS Allergies Allergy/AdvReac Type Severity Reaction Status Date / Time No Known Drug Allergies Allergy Verified 12/02/21 13:37 Vital Signs (Last 24 hours) Temp Pulse Resp BP Pulse Ox 12/03/21 09:20 97.0 F 92 H 16 121/79 98 12/03/21 08:00 97.0 F 92 H 16 121/79 98 12/03/21 04:00 97.4 F 93 H 19 121/82 97 12/02/21 23:22 97.9 F 96 H 16 125/87 99 12/02/21 19:56 97.1 F 95 H 17 130/81 98 12/02/21 19:52 97.1 F 95 H 17 130/81 98 12/02/21 16:59 96.5 F 98 H 16 133/72 98 12/02/21 16:50 96.5 F 98 H 16 133/72 98 12/02/21 16:49 99 12/02/21 16:01 99 12/02/21 16:00 96 H 16 136/87 97 12/02/21 15:15 92 H 117/77 98 12/02/21 14:00 100 H 20 121/82 98 12/02/21 13:26 97.6 F 110 H 136/63 99 Home Medications Medication Instructions Recorded Confirmed Last Taken Type No Reportable Medications [No 12/02/21 12/02/21 Unknown History Reported Medications] Current Medications Generic Name Dose Route Start Last Admin Trade Name Freq PRN Reason Stop Dose Admin Sodium Chloride 1,000 mls @ 100 mls/hr 12/02/21 16:49 12/03/21 04:01 Sodium Chloride 0.9% 1000 Ml IV 01/01/22 16:48 100 mls/hr .Q10H JESSICA Administration Piperacillin Sod/Tazobactam 100 mls @ 200 mls/hr 12/03/21 00:00 12/03/21 05:27 Sod 3.375 gm/ Sodium Chloride IV 12/06/21 00:00 200 mls/hr Q6HT JESSICA Administration Lactated Ringer's 1,000 mls @ 30 mls/hr 12/03/21 08:30 12/03/21 10:37 Lactated Ringers IV 01/02/22 08:29 30 mls/hr .Q24H JESSICA Administration Cefazolin Sodium/Dextrose 2 gm in 50 mls @ 100 mls/hr 12/03/21 08:30 12/03/21 10:37 Cefazolin 2 Gm-D5w Bag IV 12/04/21 16:00 100 mls/hr ONCALLTOOR JESSICA Administration Morphine Sulfate 4 mg 12/02/21 16:49 12/03/21 05:27 Morphine Sulfate 4 Mg/Ml Injection IV 12/07/21 16:48 4 mg Q4H PRN PRN Administration PAIN Nicotine 21 mg 12/02/21 17:30 12/02/21 17:30 Nicotine 21 Mg/Patch Patch TOP 01/01/22 17:29 21 mg Q24H JESSICA Administration Ondansetron HCl 4 mg 12/02/21 16:49 12/02/21 19:49 Ondansetron Hcl 4 Mg/2 Ml Vial IV 01/01/22 16:48 4 mg Q6H PRN PRN Administration NAUSEA/VOMITING Discontinued Medications Generic Name Dose Route Start Last Admin Trade Name Soheila PRN Reason Stop Dose Admin Bupivacaine HCl Confirm 12/03/21 06:58 Bupivacaine Hcl 2.5 Mg/Ml 10 Ml Administered 12/03/21 06:59 Dose 10 ml .ROUTE .STK-MED ONE Dexamethasone Sodium Phosphate Confirm 12/03/21 12:18 Dexamethasone Sod Phosphate 4 Mg/Ml Ml Administered 12/03/21 12:19 Dose 8 mg .ROUTE .STK-MED ONE Fentanyl Citrate Confirm 12/03/21 11:35 Fentanyl Citrate 100 Mcg/2 Ml* Vial Administered 12/03/21 11:36 Dose 100 mcg .ROUTE .STK-MED ONE Fentanyl Citrate Confirm 12/03/21 12:13 Fentanyl Citrate 100 Mcg/2 Ml* Vial Administered 12/03/21 12:14 Dose 100 mcg .ROUTE .STK-MED ONE Fentanyl Citrate Confirm 12/03/21 12:15 Fentanyl Citrate 100 Mcg/2 Ml* Vial Administered 12/03/21 12:16 Dose 100 mcg .ROUTE .STK-MED ONE Hydromorphone HCl Confirm 12/03/21 12:16 Hydromorphone 2mg Injection Administered 12/03/21 12:17 Dose 2 mg .ROUTE .STK-MED ONE Piperacillin Sod/Tazobactam 100 mls @ 200 mls/hr 12/02/21 14:20 12/02/21 14:34 Sod 3.375 gm/ Sodium Chloride IV 12/02/21 14:49 200 mls/hr STAT ONE Administration Sodium Chloride Confirm 12/02/21 14:32 Sodium Chloride 100ml Mini-Bag Plus Administered 12/02/21 14:33 Dose 100 mls @ ud IV .STK-MED ONE Lactated Ringer's Confirm 12/03/21 06:58 Lactated Ringers Administered 12/03/21 06:59 Dose 1,000 mls @ ud IV .STK-MED ONE Ketorolac Tromethamine Confirm 12/03/21 12:21 Ketorolac Tromethamine 30 Mg/Ml Inj Administered 12/03/21 12:22 Dose 30 mg .ROUTE .STK-MED ONE Lidocaine HCl Confirm 12/03/21 11:34 Lidocaine - Mpf 2% 5 Ml Vial Administered 12/03/21 11:35 Dose 5 ml .ROUTE .STK-MED ONE Midazolam HCl Confirm 12/03/21 11:34 Midazolam Hcl 2 Mg/2 Ml Vial Administered 12/03/21 11:35 Dose 2 mg .ROUTE .STK-MED ONE Morphine Sulfate 4 mg 12/02/21 14:34 12/02/21 16:01 Morphine Sulfate 4 Mg/Ml Injection IV 12/02/21 14:35 4 mg STAT ONE Administration Morphine Sulfate Confirm 12/02/21 16:01 Morphine Sulfate 4 Mg/Ml Injection Administered 12/02/21 16:02 Dose 4 mg .ROUTE .STK-MED ONE Ondansetron HCl 4 mg 12/02/21 14:34 12/02/21 16:02 Ondansetron Hcl 4 Mg/2 Ml Vial IV 12/02/21 14:35 4 mg STAT ONE Administration Ondansetron HCl Confirm 12/02/21 16:01 Ondansetron Hcl 4 Mg/2 Ml Vial Administered 12/02/21 16:02 Dose 4 mg .ROUTE .STK-MED ONE Ondansetron HCl Confirm 12/03/21 12:18 Ondansetron Hcl 4 Mg/2 Ml Vial Administered 12/03/21 12:19 Dose 4 mg .ROUTE .STK-MED ONE Piperacillin Sod/Tazobactam Sod Confirm 12/02/21 14:32 Piperacillin/Tazobactam Sodium 3.375 Gm Vial Administered 12/02/21 14:33 Dose 3.375 gm IV .STK-MED ONE Propofol Confirm 12/03/21 11:34 Propofol 10 Mg/Ml 20ml Vial Administered 12/03/21 11:35 Dose 200 mg IV .STK-MED ONE Intake & Output (Last 24 hours) 12/01/21 12/02/21 12/03/21 12/04/21 11:59 11:59 11:59 11:59 Intake Total 1503 Balance 1503 Weight 118.1 kg Microbiology Results (Last 24 hours) 12/02/21 14:26 Blood Blood Culture Gram Stain - Pending 12/02/21 14:26 Blood Blood Culture - Pending 12/02/21 14:31 Blood Blood Culture Gram Stain - Pending 12/02/21 14:31 Blood Blood Culture - Pending Laboratory Results (Last 24 hours) 12/03/21 12/03/21 12/02/21 05:20 05:20 16:10 WBC 11.0 H RBC 3.81 L Hgb 12.3 Hct 38.1 MCV 100.0 MCH 32.3 H MCHC 32.3 RDW 12.4 Plt Count 301 MPV 9.1 Gran % 62.3 Eos # (Auto) 0.17 Absolute Lymphs (auto) 3.03 Absolute Monos (auto) 0.94 Lymphocytes % 27.5 Monocytes % 8.5 Eosinophils % 1.5 Basophils % 0.2 Absolute Granulocytes 6.84 Basophils # 0.02 Sodium 139 Potassium 3.6 Chloride 109 H Carbon Dioxide 23 Anion Gap 10.5 BUN 9 Creatinine 0.74 Estimated GFR > 60.0 Glucose 94 Lactic Acid Calcium 8.6 Total Bilirubin 0.40 AST 19 ALT 14 Alkaline Phosphatase 74 Serum Total Protein 6.9 Albumin 3.7 Urine HCG, Qual Urine Opiates Level NEGATIVE Ur Methadone NEGATIVE Urine Barbiturates NEGATIVE Ur Phencyclidine (PCP) NEGATIVE Urine Amphetamine POSITIVE U Benzodiazepine Level NEGATIVE Urine Cocaine NEGATIVE Urine Marijuana (THC) POSITIVE Influenza Type A Ag Influenza Type B Ag RSV (PCR) SARS-CoV-2 (PCR) 12/02/21 12/02/21 12/02/21 16:10 15:00 14:40 WBC RBC Hgb Hct MCV MCH MCHC RDW Plt Count MPV Gran % Eos # (Auto) Absolute Lymphs (auto) Absolute Monos (auto) Lymphocytes % Monocytes % Eosinophils % Basophils % Absolute Granulocytes Basophils # Sodium Potassium Chloride Carbon Dioxide Anion Gap BUN Creatinine Estimated GFR Glucose Lactic Acid 1.0 Calcium Total Bilirubin AST ALT Alkaline Phosphatase Serum Total Protein Albumin Urine HCG, Qual NEGATIVE Urine Opiates Level Ur Methadone Urine Barbiturates Ur Phencyclidine (PCP) Urine Amphetamine U Benzodiazepine Level Urine Cocaine Urine Marijuana (THC) Influenza Type A Ag NEGATIVE Influenza Type B Ag NEGATIVE RSV (PCR) NEGATIVE SARS-CoV-2 (PCR) NEGATIVE 12/02/21 12/02/21 14:26 14:26 WBC 11.5 H RBC 3.91 L Hgb 12.8 Hct 38.8 MCV 99.2 MCH 32.7 H MCHC 33.0 RDW 12.2 Plt Count 309 MPV 9.2 Gran % 68.5 H Eos # (Auto) 0.15 Absolute Lymphs (auto) 2.42 Absolute Monos (auto) 1.04 Lymphocytes % 21.0 L Monocytes % 9.0 Eosinophils % 1.3 Basophils % 0.2 Absolute Granulocytes 7.91 H Basophils # 0.02 Sodium 140 Potassium 3.9 Chloride 108 H Carbon Dioxide 24 Anion Gap 12.3 BUN 10 Creatinine 0.85 Estimated GFR > 60.0 Glucose 102 Lactic Acid Calcium 9.0 Total Bilirubin 0.30 AST 20 ALT 15 Alkaline Phosphatase 76 Serum Total Protein 6.7 Albumin 3.9 Urine HCG, Qual Urine Opiates Level Ur Methadone Urine Barbiturates Ur Phencyclidine (PCP) Urine Amphetamine U Benzodiazepine Level Urine Cocaine Urine Marijuana (THC) Influenza Type A Ag Influenza Type B Ag RSV (PCR) SARS-CoV-2 (PCR) Orders (Last 24 hours) Category Date Time Status Bedrest with BRP/BSC ROUTINE Activity 12/02/21 16:49 Active Code Status Order ROUTINE Care 12/02/21 16:49 Active IV Care Q6H Care 12/02/21 16:49 Active IV Insertion STAT Care 12/02/21 14:[address] in Observation ROUTINE Care 12/02/21 16:49 Active NPO Diet 12/02/21 16:49 Active BLOOD CULTURE Stat Lab 12/02/21 14:26 Received CBC W DIFF AM.LAB Lab 12/03/21 05:20 Completed CBC W DIFF Stat Lab 12/02/21 14:26 Completed CMP AM.LAB Lab 12/03/21 05:20 Completed CMP Stat Lab 12/02/21 14:26 Completed HCG,QUALITATIVE URINE Stat Lab 12/02/21 16:10 Completed Lactic Acid Stat Lab 12/02/21 15:00 Completed Urine Triage Profile Stat Lab 12/02/21 16:10 Completed Bupivacaine HCl 0.25% 10 ml [Sensorcaine 0.25% 10 ML Med 12/03/21 06:58 Discontinued ] 10 ml .ROUTE .STK-MED ONE Cefazolin 2 gm /Dextrose [Cefazolin 2 gm-D5w Bag] Med 12/03/21 08:30 Active 2 gm in 50 ml IV ONCALLTOOR Dexamethasone 4 mg [Decadron 4 MG INJ] Med 12/03/21 12:18 Discontinued 8 mg .ROUTE .STK-MED ONE Fentanyl Citrate 100 Mcg/2 ml* [Sublimaze 100 Mcg/2 ml* Med 12/03/21 11:35 Discontinued ] 100 mcg .ROUTE .STK-MED ONE Fentanyl Citrate 100 Mcg/2 ml* [Sublimaze 100 Mcg/2 ml* Med 12/03/21 12:13 Discontinued ] 100 mcg .ROUTE .STK-MED ONE Fentanyl Citrate 100 Mcg/2 ml* [Sublimaze 100 Mcg/2 ml* Med 12/03/21 12:15 Discontinued ] 100 mcg .ROUTE .STK-MED ONE Hydromorphone 2Mg Inj [Dilaudid 2 mg Injection] Med 12/03/21 12:16 Discontinued 2 mg .ROUTE .STK-MED ONE KETOROLAC trometh 30 mg Inj [TORAdol 30 mg Injection Med 12/03/21 12:21 Discontinued ] 30 mg .ROUTE .STK-MED ONE Lidocaine HCl 2% Mpf 5 ml [Xylocaine-Mpf 2% 5 Ml Med 12/03/21 11:34 Discontinued Vial] 5 ml .ROUTE .STK-MED ONE Midazolam HCl 2 mg/2 ml [Versed 2 MG/2 ML Injection* Med 12/03/21 11:34 Discontinued ] 2 mg .ROUTE .STK-MED ONE Morphine Sulfate 4 mg Inj Med 12/02/21 16:01 Discontinued 4 mg .ROUTE .STK-MED ONE Morphine Sulfate 4 mg Inj Med 12/02/21 16:49 Active 4 mg IV Q4H PRN PRN Morphine Sulfate 4 mg Inj Med 12/02/21 14:34 Discontinued 4 mg IV STAT ONE NaCl 0.9% 100 ml Mini-Bag Plus [Sodium Chloride 100ML Med 12/02/21 14:32 Disc ontinued MINI-BAG PLUS] 100 ml IV UD NaCl 0.9% 1000 ml [Sodium Chloride 0.9% 1000 ML] 1,000 Med 12/02/21 16:49 Active ml IV 100 mls/hr Nicotine 21 mg [Nicoderm CQ 21 MG] Med 12/02/21 17:30 Active 21 mg TOP Q24H Ondansetron HCl 4 mg/2 ml [Zofran 4 MG/2 ML VIAL] Med 12/02/21 16:01 Discontinued 4 mg .ROUTE .STK-MED ONE Ondansetron HCl 4 mg/2 ml [Zofran 4 MG/2 ML VIAL] Med 12/03/21 12:18 Discontinued 4 mg .ROUTE .STK-MED ONE Ondansetron HCl 4 mg/2 ml [Zofran 4 MG/2 ML VIAL] Med 12/02/21 16:49 Active 4 mg IV Q6H PRN PRN Ondansetron HCl 4 mg/2 ml [Zofran 4 MG/2 ML VIAL] Med 12/02/21 14:34 Discontinued 4 mg IV STAT ONE Piperacillin/Tazobactam 3.375G [Zosyn 3.375 GM Vial] Med 12/02/21 14:32 Discontinued 3.375 gm IV .STK-MED ONE Piperacillin/Tazobactam 3.375G [Zosyn 3.375 GM Vial] 3. Med 12/03/21 00:00 Active 375 gm NaCl 0.9% 100 ml Mini-Bag Plus [Sodium Chloride 100ML MINI-BAG PLUS] 100 ml IV Q6HT Piperacillin/Tazobactam 3.375G [Zosyn 3.375 GM Vial] 3. Med 12/02/21 14:20 Discontinued 375 gm NaCl 0.9% 100 ml Mini-Bag Plus [Sodium Chloride 100ML MINI-BAG PLUS] 100 ml IV STAT Propofol 200 mg/20 ml [Diprivan 200 mg/20 ml] Med 12/03/21 11:34 Discontinued 200 mg IV .STK-MED ONE Ringers Solution,Lactated [Lactated Ringers] 1,000 ml Med 12/03/21 08:30 Active IV 30 mls/hr Ringers Solution,Lactated [Lactated Ringers] 1,000 ml Med 12/03/21 06:58 Discontinued IV UD Pulse Oximetry CONTINUOUS RT 12/02/21 16:49 Completed Patient Care Notes (Last 24 hours) 12/02/21 19:51 Nursing Note by Charity Brush Dr. at patient's bedside for assessment and explanation of options for patient's left breast abscess. Initialized on 12/02/21 19:51 - END OF NOTE Code(s): N61.1 - ABSCESS OF THE BREAST AND NIPPLE
[2021-12-03 14:43] VITALS: BP 126/81; PULSE 82; O2SAT 97
--- NOTE | 2021-12-04 10:46 | OP ---
SURGERY DATE/TIME: 12/03/2021 1159 PREOPERATIVE DIAGNOSIS: Abscess left breast. POSTOPERATIVE DIAGNOSIS: Abscess left breast. PROCEDURE: I&D left breast abscess. SURGEON: Pedro Dean M.D. ANESTHESIA: General. COMPLICATIONS: None. CONDITION: Stable. INDICATION: A patient with symptomatic breast abscess located behind the areola. It looks like it is approachable from the 6:00 location. It was marked preoperatively. DESCRIPTION OF PROCEDURE: Taken to surgery. General anesthetic. Routine prep and drape. 1.5 cm curvilinear transverse incision a few millimeters away from the areola inferiorly at 6:00. Dissection with electrocautery for about 2 cm. At this point clamp was popped into the abscess. 2 ounces of hina purulence were obtained. Suction was placed. It was carefully irrigated with a bulb syringe. A 10 mm Satnam-Keys drain was placed. The drain tube was clipped off. Secured the incision with a single suture right in the mid-point, skin and subcu drains, subcu skin and tied. Excess drain removed. The patient tolerated the procedure satisfactorily. Culture obtained.
--- NOTE | 2021-12-04 11:18 | PCM.DS ---
Discharge Summary Date of Admission: 12/02/21 16:46 Admitting Physician: KRYS AVELAR Consults: Consults on Case 12/02/21 16:46 Consult Surgery ROUTINE Primary Care Provider: KRYS AVELAR Allergies Allergies No Known Drug Allergies Allergy (Verified 12/02/21 13:37) Hospital Summary - Hospital Course Hospital Course: Chief Complaint Diagnosis BREAST ABSCESS, BREAST PAIN, LEUKOCYTOSIS Allergies Allergy/AdvReac Type Severity Reaction Status Date / Time No Known Drug Allergies Allergy Verified 12/02/21 13:37 Vital Signs (Last 24 hours) Temp Pulse Resp BP Pulse Ox 12/03/21 14:42 97.0 F 82 20 126/81 97 12/03/21 14:10 96.8 F 74 18 141/77 95 12/03/21 13:40 96.4 F 81 20 158/105 99 12/03/21 13:25 96.7 F 82 24 130/78 99 12/03/21 13:10 96.7 F 91 H 20 120/76 95 Home Medications Medication Instructions Recorded Confirmed Last Taken Type No Reportable Medications [No 12/02/21 12/02/21 Unknown History Reported Medications] Current Medications Discontinued Medications Generic Name Dose Route Start Last Admin Trade Name Freq PRN Reason Stop Dose Admin Bupivacaine HCl Confirm 12/03/21 06:58 Bupivacaine Hcl 2.5 Mg/Ml 10 Ml Administered 12/03/21 06:59 Dose 10 ml .ROUTE .STK-MED ONE Dexamethasone Sodium Phosphate Confirm 12/03/21 12:18 Dexamethasone Sod Phosphate 4 Mg/Ml Ml Administered 12/03/21 12:19 Dose 8 mg .ROUTE .STK-MED ONE Fentanyl Citrate Confirm 12/03/21 11:35 Fentanyl Citrate 100 Mcg/2 Ml* Vial Administered 12/03/21 11:36 Dose 100 mcg .ROUTE .STK-MED ONE Fentanyl Citrate Confirm 12/03/21 12:13 Fentanyl Citrate 100 Mcg/2 Ml* Vial Administered 12/03/21 12:14 Dose 100 mcg .ROUTE .STK-MED ONE Fentanyl Citrate Confirm 12/03/21 12:15 Fentanyl Citrate 100 Mcg/2 Ml* Vial Administered 12/03/21 12:16 Dose 100 mcg .ROUTE .STK-MED ONE Hydromorphone HCl Confirm 12/03/21 12:16 Hydromorphone 2mg Injection Administered 12/03/21 12:17 Dose 2 mg .ROUTE .STK-MED ONE Piperacillin Sod/Tazobactam 100 mls @ 200 mls/hr 12/02/21 14:20 12/02/21 14:34 Sod 3.375 gm/ Sodium Chloride IV 12/02/21 14:49 200 mls/hr STAT ONE Administration Sodium Chloride Confirm 12/02/21 14:32 Sodium Chloride 100ml Mini-Bag Plus Administered 12/02/21 14:33 Dose 100 mls @ ud IV .STK-MED ONE Sodium Chloride 1,000 mls @ 100 mls/hr 12/02/21 16:49 12/03/21 14:38 Sodium Chloride 0.9% 1000 Ml IV 01/01/22 16:48 100 mls/hr .Q10H JESSICA Administration Piperacillin Sod/Tazobactam 100 mls @ 200 mls/hr 12/03/21 00:00 12/03/21 13:25 Sod 3.375 gm/ Sodium Chloride IV 12/06/21 00:00 200 mls/hr Q6HT JESSICA Administration Lactated Ringer's Confirm 12/03/21 06:58 Lactated Ringers Administered 12/03/21 06:59 Dose 1,000 mls @ ud IV .STK-MED ONE Lactated Ringer's 1,000 mls @ 30 mls/hr 12/03/21 08:30 12/03/21 10:37 Lactated Ringers IV 01/02/22 08:29 30 mls/hr .Q24H JESSICA Administration Cefazolin Sodium/Dextrose 2 gm in 50 mls @ 100 mls/hr 12/03/21 08:30 12/03/21 10:37 Cefazolin 2 Gm-D5w Bag IV 12/04/21 16:00 100 mls/hr ONCALLTOOR JESSICA Administration Ketorolac Tromethamine Confirm 12/03/21 12:21 Ketorolac Tromethamine 30 Mg/Ml Inj Administered 12/03/21 12:22 Dose 30 mg .ROUTE .STK-MED ONE Lidocaine HCl Confirm 12/03/21 11:34 Lidocaine - Mpf 2% 5 Ml Vial Administered 12/03/21 11:35 Dose 5 ml .ROUTE .STK-MED ONE Midazolam HCl Confirm 12/03/21 11:34 Midazolam Hcl 2 Mg/2 Ml Vial Administered 12/03/21 11:35 Dose 2 mg .ROUTE .STK-MED ONE Morphine Sulfate 4 mg 12/02/21 14:34 12/02/21 16:01 Morphine Sulfate 4 Mg/Ml Injection IV 12/02/21 14:35 4 mg STAT ONE Administration Morphine Sulfate Confirm 12/02/21 16:01 Morphine Sulfate 4 Mg/Ml Injection Administered 12/02/21 16:02 Dose 4 mg .ROUTE .STK-MED ONE Morphine Sulfate 4 mg 12/02/21 16:49 12/03/21 05:27 Morphine Sulfate 4 Mg/Ml Injection IV 12/07/21 16:48 4 mg Q4H PRN PRN Administration PAIN Nicotine 21 mg 12/02/21 17:30 12/02/21 17:30 Nicotine 21 Mg/Patch Patch TOP 01/01/22 17:29 21 mg Q24H JESSICA Administration Ondansetron HCl 4 mg 12/02/21 14:34 12/02/21 16:02 Ondansetron Hcl 4 Mg/2 Ml Vial IV 12/02/21 14:35 4 mg STAT ONE Administration Ondansetron HCl Confirm 12/02/21 16:01 Ondansetron Hcl 4 Mg/2 Ml Vial Administered 12/02/21 16:02 Dose 4 mg .ROUTE .STK-MED ONE Ondansetron HCl 4 mg 12/02/21 16:49 12/02/21 19:49 Ondansetron Hcl 4 Mg/2 Ml Vial IV 01/01/22 16:48 4 mg Q6H PRN PRN Administration NAUSEA/VOMITING Ondansetron HCl Confirm 12/03/21 12:18 Ondansetron Hcl 4 Mg/2 Ml Vial Administered 12/03/21 12:19 Dose 4 mg .ROUTE .STK-MED ONE Piperacillin Sod/Tazobactam Sod Confirm 12/02/21 14:32 Piperacillin/Tazobactam Sodium 3.375 Gm Vial Administered 12/02/21 14:33 Dose 3.375 gm IV .STK-MED ONE Propofol Confirm 12/03/21 11:34 Propofol 10 Mg/Ml 20ml Vial Administered 12/03/21 11:35 Dose 200 mg IV .STK-MED ONE Intake & Output (Last 24 hours) 12/01/21 12/02/21 12/03/21 12/04/21 11:59 11:59 11:59 11:59 Intake Total 1503 Balance 1503 Weight 118.1 kg Microbiology Results (Last 24 hours) 12/03/21 12:15 Breast - Left Abscess Culture - Preliminary NO GROWTH TO DATE 12/02/21 14:26 Blood Blood Culture Gram Stain - Pending 12/02/21 14:26 Blood Blood Culture - Preliminary NO GROWTH TO DATE 12/02/21 14:31 Blood Blood Culture Gram Stain - Pending 12/02/21 14:31 Blood Blood Culture - Preliminary NO GROWTH TO DATE Orders (Last 24 hours) Category Date Time Status House Regular Diet Diet 12/03/21 Lunch Completed Discharge Routine Discharge 12/03/21 15:48 Ordered CULTURE,ABSCESS Routine Lab 12/03/21 12:15 Results Dexamethasone 4 mg [Decadron 4 MG INJ] Med 12/03/21 12:18 Discontinued 8 mg .ROUTE .STK-MED ONE Fentanyl Citrate 100 Mcg/2 ml* [Sublimaze 100 Mcg/2 ml* Med 12/03/21 11:35 Discontinued ] 100 mcg .ROUTE .STK-MED ONE Fentanyl Citrate 100 Mcg/2 ml* [Sublimaze 100 Mcg/2 ml* Med 12/03/21 12:13 Discontinued ] 100 mcg .ROUTE .STK-MED ONE Fentanyl Citrate 100 Mcg/2 ml* [Sublimaze 100 Mcg/2 ml* Med 12/03/21 12:15 Discontinued ] 100 mcg .ROUTE .STK-MED ONE Hydromorphone 2Mg Inj [Dilaudid 2 mg Injection] Med 12/03/21 12:16 Discontinued 2 mg .ROUTE .STK-MED ONE KETOROLAC trometh 30 mg Inj [TORAdol 30 mg Injection Med 12/03/21 12:21 Discontinued ] 30 mg .ROUTE .STK-MED ONE Lidocaine HCl 2% Mpf 5 ml [Xylocaine-Mpf 2% 5 Ml Med 12/03/21 11:34 Discon tinued Vial] 5 ml .ROUTE .STK-MED ONE Midazolam HCl 2 mg/2 ml [Versed 2 MG/2 ML Injection* Med 12/03/21 11:34 Discontinued ] 2 mg .ROUTE .STK-MED ONE Ondansetron HCl 4 mg/2 ml [Zofran 4 MG/2 ML VIAL] Med 12/03/21 12:18 Discontinued 4 mg .ROUTE .STK-MED ONE Propofol 200 mg/20 ml [Diprivan 200 mg/20 ml] Med 12/03/21 11:34 Discontinued 200 mg IV .STK-MED ONE Patient Care Notes (Last 24 hours) 12/03/21 15:48 Nursing Note by TOM ERNST DR. CALLED BACK AND IS OK WITH PT GOING HOME TODAY. WHEN ASKED ABOUT ANTIBIOTICS AND PAIN MEDICATION, HE STATED TO LET DR. AVELAR MAKE THAT DECISION. HE DID WANT TO SEE PT IN OFFICE NEXT WEEK. DR. AVELAR CALLED AND INFORMED THAT PT WANTED TO LEAVE AND THAT DR. John FERRERA WAS OK WITH HER LEAVING. DR. AVELAR GAVE ORDER FOR DISCHARGE. WHEN ASKED ABOUT ANTIBIOTICS AND PAIN MEDICATIONS HE STATED NO ANTIBIOTICS AND TO TAKE TYLENOL AND IBUPROFEN NEEDED FOR PAIN. Initialized on 12/03/21 15:48 - END OF NOTE 12/03/21 15:26 Nursing Note by TOM ERNST ACCOUNTING INSTRUCTOR STATED PT WANTED TO GO HOME AND WANTED TO SIGN OUT AMA. WHEN THIS NURSE ENTERED PT'S ROOM, PT WAS CRYING HYSTERICALLY PACING IN HER ROOM. SHE STATED SHE JUST WANTED TO LEAVE TO BE WITH HER DAUGHTER AND SHE DIDN'T CARE IF SHE HAD TO SIGN HERSELF OUT. THIS NURSE EXPLAINED TO HER THE RISKS OF LEAVING WITHOUT HAVING ANTIBIOTICS OR EVEN PAIN MEDICATIONS AND HER POSSIBLY BE STUCK WITH THE MEDICAL BILL. PT DID NOT CARE. THIS NURSE TOLD THE PT THAT THE SURGEON WOULD BE PAGED AND LET HIM KNOW HER WISHES. DR. John FERRERA PAGED AT THIS TIME. Initialized on 12/03/21 15:26 - END OF NOTE 12/03/21 13:03 Nursing Note by Edna Castle Patient is back from the [facility] Initialized on 12/03/21 13:03 - END OF NOTE - Vitals & Intake/Output Vital Signs: Vital Signs Temperature 97.0 F 12/03/21 14:42 Pulse Rate 82 12/03/21 14:42 Respiratory Rate 20 12/03/21 14:42 Blood Pressure 126/81 12/03/21 14:42 O2 Sat by Pulse Oximetry 97 12/03/21 14:42 Intake & Output: Intake & Output 12/01/21 12/02/21 12/03/21 12/04/21 11:59 11:59 11:59 11:59 Intake Total 1503 Balance 1503 Weight 118.1 kg - Lab Result Diagrams: 12/03/21 05:20 12/03/21 05:20 Micro Results-Entire Visit: Microbiology 12/03/21 12:15 Abscess Culture - Preliminary Breast - Left NO GROWTH TO DATE 12/02/21 14:26 Blood Culture - Preliminary Blood NO GROWTH TO DATE 12/02/21 14:31 Blood Culture - Preliminary Blood NO GROWTH TO DATE Discharge Exam General Appearance: no apparent distress, alert Neurologic Exam: alert, oriented x 3, cooperative, normal mood/affect, nml cerebellar function, sensation nml, No motor deficits Eye Exam: PERRL, EOMI, eyes nml inspection Ears, Nose, Throat Exam: normal ENT inspection, pharynx normal, moist mucous membranes Neck Exam: normal inspection, non-tender, supple, full range of motion Respiratory Exam: normal breath sounds, lungs clear, No respiratory distress Cardiovascular Exam: regular rate/rhythm, normal heart sounds Gastrointestinal/Abdomen Exam: soft, No tenderness, No mass Pelvic Exam: deferred Rectal Exam: deferred Back Exam: normal inspection, normal range of motion, No CVA tenderness, No vertebral tenderness Extremity Exam: normal inspection, normal range of motion Skin Exam: normal color, warm, dry Final Diagnosis/Problem List - Final Discharge Diagnosis/Problem (1) Breast abscess Status: Acute Code(s): N61.1 - ABSCESS OF THE BREAST AND NIPPLE - Discharge Discharge Date: 12/03/21 Disposition: Home, Self-Care Condition: Stable Prescriptions: No Action No Reportable Medications [No Reported Medications] Instructions: Wound Incision and Drainage (DC) Additional Instructions: CHANGE GAUZE DRESSING NEEDED. TAKE TYLENOL AND IBUPROFEN FOR PAIN NEEDED. Follow up with: TIFFANIE FERRERA [ACTIVE STAFF] - Call for Appointment (CALL TOMORROW 12/04/21 FOR FOOW-UP FOR NEXT WEEK) KRYS AVELAR MD [Primary Care Provider] - 12/10/21 9:30 am (FOLLOW-UP NEEDED ) Forms: Discharge Instructions
== END 2021-12-03 16:30 | disposition home or self-care (01) ==
LOC: ED 13:20 → MED SURG 16:46
PROVIDERS: ADMIT General Practice; ATTEND General Practice
DX: N61.1 Abscess of the breast and nipple (principal); D72.829 Elevated white blood cell count, unspecified; Z72.0 Tobacco use; Z20.828 Contact with and (suspected) exposure to other viral communicable diseases
CPT/HCPCS: 0241U; 19020; 36000; 36415; 76641; 80053; 80307; 83605; 84703; 85025; 87040; 87070; 94760; 96374; 96375; 99285; G0378; J0690; J1100; J1170; J1885; J2250; J2270; J2405; J2704; J3010; A9270-GY

== ENCOUNTER 2022-02-26 04:41 | Emergency (ER) | payer OTHER ==
[2022-02-26] MEDS ORDERED: Zofran 4 MG/2 ML VIAL IV ONE (05:03)
[2022-02-26] MEDS ORDERED: Zofran 4 MG/2 ML VIAL ONE (05:08)
[2022-02-26] MEDS ORDERED: MORPHINE SULFATE 4 MG INJ IV ONE (05:18)
[2022-02-26] MEDS ORDERED: Sodium Chloride 0.9% 1000 ML 1,000 ML IV STA (05:18)
[2022-02-26] MEDS ORDERED: MORPHINE SULFATE 4 MG INJ ONE (05:20)
[2022-02-26] MEDS ORDERED: Sodium Chloride 0.9% 1000 ML 1,000 ML ONE (05:20)
[2022-02-26 05:22] LABS: Hemoglobin 15.6 gm/dl (12.0-16.0); Mean Corpuscular Hemoglobin 32.6 pg (26-32); Mean Corpuscular Hgb Concent. 33.9 g/dl (32-36); Mean Platelet Volume 9.4 fl (7.5-11.0); Platelet Count 344 K/mm3 (150-450); Red Blood Count 4.79 M/mm3 (4.1-5.4); Red Cell Distribution Width 13.4 % (11.5-14.0)
[2022-02-26 05:28] LABS: ALBUMIN 4.5 g/dL (3.5-5.0); ALKALINE PHOSPHATASE 94 U/L (38-126); AMYLASE 61 U/L (30-110); ANION GAP 20.3 MEQ/L (5-15); CHLORIDE 107 mmol/L (98-107); Calcium 9.3 mg/dL (8.4-10.2); Carbon Dioxide 20 mmol/L (22-30); Creatinine 1 0.54 mg/dL (0.52-1.04); Direct Bilirubin 0.2 mg/dL (0.0-0.4); EST GLOMERULAR FILTRATION RATE > 60.0 ML/MIN; Glucose 119 mg/dL (74-106); LIPASE 69 U/L (23-300); Potassium 3.9 mmol/L (3.5-5.1); SGOT/AST 31 U/L (14-36); SGPT/ALT 18 U/L (0-35); SODIUM 143 mmol/L (137-145); Total Protein 7.9 g/dL (6.3-8.2)
[2022-02-26 05:29] LABS: BLOOD UREA NITROGEN 2 mg/dL (7-17)
--- NOTE | 2022-02-26 05:53 | ERPHSYRPT ---
- History of Present Illness Historian: patient Exam Limitations: no limitations Patient Subjective Stated Complaint: Patient is c/o abdominal pain and N/V. States she hasn't been able to eat for 2 days related to the pain but N/V just started approx 2 hours prior to coming to the ED. Pain also increased to be severe and constant around that same time so she decided to come to the ED. Denies any changes in bowel habits. Triage Nursing Assessment: Patient brought back to the ED in a wheelchair accompanied by her mother. She is alert and oriented and answering questions appropriately. Increase pain noted to right side of abdomen with palpation. Patient displaying s/s of pain; grimacing and unable to remain still in bed. No vomiting noted during assessment. Timing/Duration: day(s) (2), gradual onset, worse Activities at Onset: rest Quality: sharpness Abdominal Pain Onset Location: RUQ, RLQ, epigastric Pain Radiation: no radiation Severity of Pain-Max: moderate Severity of Pain-Current: moderate Modifying Factors: Worsens With: movement, palpation Associated Symptoms: nausea, vomiting Previous symptoms: no prior history Hx Tetanus, Diphtheria Vaccination/Date Given: Yes Hx Influenza Vaccination/Date Given: No Hx Pneumococcal Vaccination/Date Given: No Immunizations Up to Date: Yes <WENDIE VINSON - Last Filed: 02/26/22 06:53> <HEENA NOVAK - Last Filed: 02/26/22 09:23> - History of Present Illness Time Seen by Provider: 02/26/22 05:18 Physician History: 21-year-old female presented to the ER with chief complaint of right-sided abdominal pain for the last couple of days, intermittent, moderate to severe intensity sharp nature and almost 2 hours prior to arrival started to have nausea vomiting. Patient report couple of episodes of nonprojectile, nonbilious vomiting without hematemesis. She has decreased oral intake for the last couple of days because of pain. Denies any urinary symptoms. No fever or chills reported. (WENDIE VINSON) Allergies/Adverse Reactions: No Known Drug Allergies Allergy (Verified 02/26/22 04:47) Travel Risk - International Travel Have you traveled outside of the country in past 3 weeks: No - Coronavirus Screening Are you exhibiting any of the following symptoms?: No Close contact with a COVID-19 positive Pt in past 14-21 Days: No - Vaccine Status Have you recieved a Covid-19 vaccination: No <WENDIE VINSON - Last Filed: 02/26/22 06:53> - Review of Systems Constitutional: No Symptoms Eyes: No Symptoms Ears, Nose, & Throat: No Symptoms Respiratory: No Symptoms Cardiac: No Symptoms Abdominal/Gastrointestinal: Abdominal Pain, Nausea, Vomiting Genitourinary Symptoms: No Symptoms Musculoskeletal: No Symptoms Skin: No Symptoms Neurological: No Symptoms Endocrine: No Symptoms Hematologic/Lymphatic: No Symptoms <WENDIE VINSON - Last Filed: 02/26/22 06:53> - Past Medical History Pertinent Past Medical History: No Neurological History: No Pertinent History ENT History: No Pertinent History Cardiac History: No Pertinent History Respiratory History: No Pertinent History Endocrine Medical History: No Pertinent History Musculoskeletal History: No Pertinent History GI Medical History: No Pertinent History History: No Pertinent History Psycho-Social History: No Pertinent History Female Reproductive Disorders: No Pertinent History - Past Surgical History Past Surgical History: Yes Neuro Surgical History: No Pertinent History Cardiac: No Pertinent History Respiratory: No Pertinent History Gastrointestinal: No Pertinent History Genitourinary: No Pertinent History Musculoskeletal: No Pertinent History Female Surgical History: No Pertinent History Other Surgical History: cyst removed from a breast - Social History Smoking Status: Current every day smoker How long have you smoked: 5 YEARS Exposure to second hand smoke: No Drug Use: none Patient Lives Alone: No - Female History Hx Last Menstrual Period: Spotted on an off Hx Now: (unkn) <ALISSONWENDIE - Last Filed: 02/26/22 06:53> - Physical Exam General Appearance: no apparent distress, alert Eye Exam: PERRL/EOMI Ears, Nose, Throat Exam: normal ENT inspection, pharynx normal Neck Exam: normal inspection, supple, full range of motion Respiratory Exam: normal breath sounds, lungs clear Cardiovascular Exam: normal heart sounds, tachycardia Back Exam: normal inspection, normal range of motion Extremity Exam: normal inspection, normal range of motion Neurologic Exam: alert, oriented x 3, cooperative Skin Exam: normal color SpO2 Interpretation: normal SpO2: 98 O2 Delivery: Room Air <WENDIE VINSON - Last Filed: 02/26/22 06:53> - Nursing Vital Signs Nursing Vital Signs: Initial Vital Signs Temperature 97.5 F 02/26/22 04:48 Pulse Rate 114 H 02/26/22 04:48 Respiratory Rate 20 02/26/22 04:48 Blood Pressure 144/86 02/26/22 04:48 O2 Sat by Pulse Oximetry 98 02/26/22 04:48 Pain Scale Pain Intensity 5 - CT Exams Abdomen/Pelvis CT Interpretation: Tele-radiologist Report (Mild bowel wall thickening) - Radiology Ultrasound Exam Gallbladder Ultrasound: discussed w/radiologist (Neg) <HEENA NOVAK - Last Filed: 02/26/22 09:23> Ordered Tests: Active Orders 24 hr Category Date Time Status Code Status Order ROUTINE Care 02/26/22 04:59 Active IV Insertion STAT Care 02/26/22 05:18 Active NPO (ED) STAT Care 02/26/22 05:18 Active ABDOMEN AND PELVIS W CONTRAST [CT] Stat Exams 02/26/22 05:52 Completed ABDOMINAL-LIMITED [US] Stat Exams 02/26/22 09:05 Completed AMYLASE Stat Lab 02/26/22 05:14 Completed CBC Stat Lab 02/26/22 05:14 Completed CMP Stat Lab 02/26/22 05:14 Completed HCG QUALITATIVE,SERUM Stat Lab 02/26/22 05:14 Completed Hepatic Function Panel Stat Lab 02/26/22 05:14 Completed LIPASE Stat Lab 02/26/22 05:14 Completed Medication Summary Discontinued Medications Generic Name Dose Route Start Last Admin Trade Name Freq PRN Reason Stop Dose Admin Sodium Chloride 1,000 mls @ 999 mls/hr 02/26/22 05:18 02/26/22 06:32 Sodium Chloride 0.9% 1000 Ml IV 02/26/22 06:18 Infused .Q1H1M STA Infusion Sodium Chloride Confirm 02/26/22 05:20 Sodium Chloride 0.9% 1000 Ml Administered 02/26/22 05:21 Dose 1,000 mls @ ud .ROUTE .STK-MED ONE Morphine Sulfate 4 mg 02/26/22 05:18 02/26/22 05:21 Morphine Sulfate 4 Mg/Ml Injection IV 02/26/22 05:19 4 mg STAT ONE Administration Morphine Sulfate Confirm 02/26/22 05:20 Morphine Sulfate 4 Mg/Ml Injection Administered 02/26/22 05:21 Dose 4 mg .ROUTE .STK-MED ONE Ondansetron HCl 4 mg 02/26/22 05:03 02/26/22 05:08 Ondansetron Hcl 4 Mg/2 Ml Vial IV 02/26/22 05:04 4 mg STAT ONE Administration Ondansetron HCl Confirm 02/26/22 05:08 Ondansetron Hcl 4 Mg/2 Ml Vial Administered 02/26/22 05:09 Dose 4 mg .ROUTE .STK-MED ONE Lab/Rad Data: Laboratory Result Diagrams 02/26/22 05:14 02/26/22 05:14 Laboratory Results 02/26/22 02/26/22 02/26/22 Range/Units 06:20 05:14 05:14 WBC (4.0-10.5) K/mm3 RBC (4.1-5.4) M/mm3 Hgb (12.0-16.0) gm/dl Hct (35-47) % MCV (78-100) fl MCH (26-32) pg MCHC (32-36) g/dl RDW (11.5-14.0) % Plt Count (150-450) K/mm3 MPV (7.5-11.0) fl Sodium 143 (137-145) mmol/L Potassium 3.9 (3.5-5.1) mmol/L Chloride 107 (98-107) mmol/L Carbon Dioxide 20 L (22-30) mmol/L Anion Gap 20.3 H (5-15) MEQ/L BUN 2 L (7-17) mg/dL Creatinine 0.54 (0.52-1.04) mg/dL Estimated GFR > 60.0 ML/MIN Glucose 119 H (74-106) mg/dL Calcium 9.3 (8.4-10.2) mg/dL Total Bilirubin 0.40 (0.2-1.3) mg/dL Direct Bilirubin 0.2 (0.0-0.4) mg/dL AST 31 (14-36) U/L ALT 18 (0-35) U/L Alkaline Phosphatase 94 (38-126) U/L Serum Total Protein 7.9 (6.3-8.2) g/dL Albumin 4.5 (3.5-5.0) g/dL Amylase 61 (30-110) U/L Lipase 69 (23-300) U/L Serum , Qual NEGATIVE (Negative) Urinalys Dipstick Clnc MAIN LAB Urine Color LT.YELLOW (YELLOW) Urine Appearance CLEAR (CLEAR) Urine pH 7.0 (5-6) Ur Specific [place] 1.010 (1.005-1.025) POC Urine Protein Conf NEGATIVE (Negative) Urine Ketones NEGATIVE (NEGATIVE) Urine Nitrite NEGATIVE (NEGATIVE) Urine Bilirubin NEGATIVE (NEGATIVE) Urine Urobilinogen 0.2 (0-1) mg/dL Urine Leukocytes NEGATIVE (NEGATIVE) Urine WBC (Auto) NONE (0-5) /HPF Urine RBC (Auto) NONE (0-2) /HPF U Epithel Cells (Auto) RARE (FEW) /HPF Urine RBC TRACE NON-HEM (0-5) Vincent/ul Ur Culture Indicated? NO Urine Glucose NEGATIVE (NEGATIVE) mg/dL 02/26/22 Range/Units 05:14 WBC 8.0 (4.0-10.5) K/mm3 RBC 4.79 (4.1-5.4) M/mm3 Hgb 15.6 (12.0-16.0) gm/dl Hct 46.0 (35-47) % MCV 96.0 (78-100) fl MCH 32.6 H (26-32) pg MCHC 33.9 (32-36) g/dl RDW 13.4 (11.5-14.0) % Plt Count 344 (150-450) K/mm3 MPV 9.4 (7.5-11.0) fl Sodium (137-145) mmol/L Potassium (3.5-5.1) mmol/L Chloride (98-107) mmol/L Carbon Dioxide (22-30) mmol/L Anion Gap (5-15) MEQ/L BUN (7-17) mg/dL Creatinine (0.52-1.04) mg/dL Estimated GFR ML/MIN Glucose (74-106) mg/dL Calcium (8.4-10.2) mg/dL Total Bilirubin (0.2-1.3) mg/dL Direct Bilirubin (0.0-0.4) mg/dL AST (14-36) U/L ALT (0-35) U/L Alkaline Phosphatase (38-126) U/L Serum Total Protein (6.3-8.2) g/dL Albumin (3.5-5.0) g/dL Amylase (30-110) U/L Lipase (23-300) U/L Serum , Qual (Negative) Urinalys Dipstick Clnc Urine Color (YELLOW) Urine Appearance (CLEAR) Urine pH (5-6) Ur Specific [place] (1.005-1.025) POC Urine Protein Conf (Negative) Urine Ketones (NEGATIVE) Urine Nitrite (NEGATIVE) Urine Bilirubin (NEGATIVE) Urine Urobilinogen (0-1) mg/dL Urine Leukocytes (NEGATIVE) Urine WBC (Auto) (0-5) /HPF Urine RBC (Auto) (0-2) /HPF U Epithel Cells (Auto) (FEW) /HPF Urine RBC (0-5) Vincent/ul Ur Culture Indicated? Urine Glucose (NEGATIVE) mg/dL - Progress Progress: improved Counseled pt/family regarding: lab results, diagnosis, need for follow-up <WENDIE VINSON - Last Filed: 02/26/22 06:53> <HEENA NOVAK - Last Filed: 02/26/22 09:23> - Progress Progress Note: 02/26/22 06:52 Given symptomatic treatment along with fluids, on reevaluation feeling better. Has normal white count, grossly unremarkable chemistries. CT abdomen pelvis is pending, care is transferred to Dr. Vizcarra at shift change for final disposition. (WENDIE VINSON) 02/26/22 07:21 Assumed care at 7:00AM of 21 yo Wf w epigastric pain for 1 week. Pt's CBC/CMP/UA/Preg are WNL. Pt given 2mg IV MSO4 w improvement in pain. Waiting on CT results. (HEENA NOVAK) <WENDIE VINSON - Last Filed: 02/26/22 06:53> - Departure Departure Disposition: Home Critical Care Time: No <HEENA NOVAK - Last Filed: 02/26/22 09:23> - Departure Clinical Impression: Abdominal pain Condition: Stable Referrals: KRYS AVELAR MD [Primary Care Provider] - Follow up/PCP as directed Instructions: Acute Abdomen (Belly Pain), Adult (DC) Additional Instructions: Follow up with your family MD Return to ER for increasing pain or temperature greater than 100.5 Bentyl as needed for pain Prescriptions: Dicyclomine HCl 20 mg [Bentyl 20 mg] 20 mg PO Q6H PRN PRN #14 tablet PRN Reason: Pain
[2022-02-26 06:50] LABS: Epithelial Cells RARE /HPF (FEW)
[2022-02-26 06:53] LABS: Appearance CLEAR (CLEAR); Bilirubin NEGATIVE (NEGATIVE); Glucose NEGATIVE (NEGATIVE); Ketones NEGATIVE (NEGATIVE); Nitrite NEGATIVE (NEGATIVE); Protein,Urine Dip NEGATIVE (Negative); RBC TRACE NON-HEM Ery/ul (0-5); Urine Cultured Indicated? NO; Urobilinogen 0.2 mg/dL (0-1)
[2022-02-26 06:54] LABS: Dipstick done @ ? MAIN LAB
[2022-02-26 08:59] VITALS: BP 135/91; PULSE 95; O2SAT 98
--- NOTE | 2022-02-26 09:14 | XRAY ---
Indication: Right upper quadrant pain, nausea, and vomiting 1 week. Multiple contiguous axial images obtained through the abdomen and pelvis using 80 cc Isovue 370 contrast. Comparison: August 30, 2020. Lung bases are clear of infiltrate and effusion. Heart is not enlarged. Noncontrasted stomach and bowel loops are nonobstructed again with normal appendix. A few jejunal bowel loops demonstrates mild circumferential wall thickening, possible enteritis in the right clinical setting. New 1.4 cm left ovary cyst. No free fluid/air. Enlarged spleen measuring 13.4 cm. Remaining liver, gallbladder, pancreas, spleen, adrenal glands, kidneys, ureters, bladder, uterus, and aorta are unremarkable. No pathologic retroperitoneal lymphadenopathy. Osseous structures intact. No ventral or inguinal hernias. Impression: 1. Mild jejunal bowel wall thickening. Rule out enteritis clinically. 2. Splenomegaly and 1.4 cm left ovary cyst. Comment: Preliminary interpretation made by [facility]. No critical discrepancy.
--- NOTE | 2022-02-26 09:16 | XRAY ---
Indication: Abdominal pain. Possible enteritis on same-day CT abdomen/pelvis. Two-dimensional right upper quadrant abdominal sonogram performed. Comparison: None Visualized gallbladder, liver, pancreas, and right kidney are sonographically normal. No organomegaly or ascites. Right kidney measures 11.6 cm in length. Impression: Negative right upper quadrant sonogram.
== END 2022-02-26 09:40 | disposition home or self-care (01) ==
LOC: ED 04:41
DX: R10.11 Right upper quadrant pain (principal); R10.31 Right lower quadrant pain; R10.13 Epigastric pain; R11.2 Nausea with vomiting, unspecified; Z72.0 Tobacco use
CPT/HCPCS: 36000; 36415; 74177; 76705; 80053; 80076; 81015; 81025; 82150; 83690; 85027; 96374; 96375; 99284; J2270; J2405

== ENCOUNTER 2022-08-22 01:07 | Emergency (ER) | payer OTHER ==
[2022-08-22] MEDS ORDERED: DUONEB 0.5-3 MG/3 ml Neb IH ONE ×2 (01:24→01:38)
[2022-08-22] MEDS ORDERED: solu-MEDROL 125 MG, Sterile H2O 10 ml 2 ML IV ONE ×2 (01:24)
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
[2022-08-22] MEDS ORDERED: solu-MEDROL ONE (01:27)
[2022-08-22 01:30] VITALS: O2SAT 97
[2022-08-22 01:41] LABS: Absolute Neutrophil Ct (ANC) 3.54 x10^3/uL (1.4-6.9); Basophil (Absolute #) 0.04 x10^3/uL (0-0.4); Eosinophil % 1.8 % (0.00-5.0); Eosinophil (Absolute #) 0.13 x10^3/uL (0-0.5); Hematocrit 39.4 % (35-47); Hemoglobin 13.3 g/dL (12.0-16.0); Lymphocyte (Absolute #) 2.91 x10^3/uL (1.0-4.6); Lymphocytes % 40.2 % (24.0-44.0); Mean Cell Volume 101.8 fL (78-100); Mean Corpuscular Hemoglobin 34.4 pg (26-32); Mean Corpuscular Hgb Concent. 33.8 g/dL (32-36); Mean Platelet Volume 9.1 fL (7.5-11.0); Monocyte (Absolute #) 0.59 x10^3/uL (0.0-1.3); Monocytes % 8.2 % (0.0-12.0); Neutrophil % 48.9 % (36.0-66.0); Platelet Count 293 x10^3/uL (150-450); Red Blood Count 3.87 x10^6/uL (4.1-5.4); Red Cell Distribution Width 12.1 % (11.5-14.0); White Blood Count 7.2 x10^3/uL (4.0-10.5)
[2022-08-22 01:55] LABS: ALBUMIN 4.5 g/dL (3.5-5.0); ALKALINE PHOSPHATASE 74 U/L (38-126); ANION GAP 18.4 MEQ/L (5-15); BLOOD UREA NITROGEN 8 mg/dL (7-17); CHLORIDE 105 mmol/L (98-107); Calcium 8.6 mg/dL (8.4-10.2); Carbon Dioxide 20 mmol/L (22-30); Creatinine 1 0.81 mg/dL (0.52-1.04); EST GLOMERULAR FILTRATION RATE > 60.0 ML/MIN; Glucose 109 mg/dL (74-106); Potassium 3.2 mmol/L (3.5-5.1); SGOT/AST 46 U/L (14-36); SGPT/ALT 25 U/L (0-35); SODIUM 140 mmol/L (137-145); Total Protein 7.7 g/dL (6.3-8.2)
[2022-08-22 02:18] LABS: INFLUENZA A NEGATIVE (NEGATIVE); INFLUENZA B NEGATIVE (NEGATIVE); RESPIRATORY SYNCTIAL VIRUS NEGATIVE (Negative); SARS-CoV-2 Xpert Express NEGATIVE (NEGATIVE)
[2022-08-22] MEDS ORDERED: Klor Con PO ONE ×2 (02:27→02:31)
[2022-08-22 02:32] VITALS: BP 121/84; PULSE 95
--- NOTE | 2022-08-22 07:19 | XRAY ---
Indication: Cough. Comparison: None Portable apical lordotic chest demonstrates normal heart, lungs, and bony thorax.
--- NOTE | 2022-08-22 07:19 | XRAY ---
Indication: Cough. Comparison: None Portable apical lordotic chest demonstrates normal heart, lungs, and bony thorax.
== END 2022-08-22 02:38 | disposition home or self-care (01) ==
LOC: ED 01:07
DX: J06.9 Acute upper respiratory infection, unspecified (principal)
CPT/HCPCS: 0241U; 36000; 36415; 71045; 80053; 83605; 85025; 94640; 96374; 99284; J2930; A9270-GY

== ENCOUNTER 2022-10-17 06:42 | Emergency (ER) | payer OTHER ==
[2022-10-17 07:46] VITALS: BP 158/94; PULSE 102; O2SAT 97
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
[2022-10-17 08:27] LABS: Amphetamine,Urine NEGATIVE (NEGATIVE); Barbiturate,Urine NEGATIVE (NEGATIVE); Benzodiazepine,Urine NEGATIVE (NEGATIVE); Cocaine,Urine NEGATIVE (NEGATIVE); Methadone,Urine NEGATIVE (NEGATIVE); Opiate,Urine NEGATIVE (NEGATIVE); PCP,Urine NEGATIVE (NEGATIVE); THC,Urine POSITIVE (NEGATIVE)
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
== END 2022-10-17 09:48 | disposition home or self-care (01) ==
LOC: ED 06:42
DX: M25.522 Pain in left elbow (principal); M25.562 Pain in left knee; M25.572 Pain in left ankle and joints of left foot; Z28.310 Unvaccinated for COVID-19; Z72.0 Tobacco use
CPT/HCPCS: 73080; 73562; 73610; 73630; 80307; 81025; 99283

== ENCOUNTER 2023-11-11 01:23 | Inpatient (IN) | payer OTHER ==
[2023-11-11] MEDS ORDERED: PITOCIN 30 UNITS/ LR 500 ML 30 UNITS/500 ML PLAST..BAG IV SCH ×2 (05:00)
[2023-11-11] MEDS ORDERED: Lactated Ringers 1,000 ML IV ONE (05:00)
[2023-11-11] MEDS ORDERED: XYLOCAINE 1% HCL 20 ML MDV IJ PRN (05:00)
[2023-11-11] MEDS ORDERED: Zofran 4 MG/2 ML VIAL IV PRN (05:00)
[2023-11-11] MEDS ORDERED: Ephedrine Sulfate 50 MG/ML IV PRN (05:00)
[2023-11-11] MEDS ORDERED: FENTANYL 2 MCG-BUPIV 0.125%-NS 250 ML Epidur 250 ML EPIDURAL SCH (06:00)
[2023-11-11 06:03] LABS: Absolute Neutrophil Ct (ANC) 11.26 x10^3/uL (1.4-6.9); BASOPHIL % 0.3 % (0.0-0.4); Basophil (Absolute #) 0.04 x10^3/uL (0-0.4); Eosinophil % 0.6 % (0.00-5.0); Eosinophil (Absolute #) 0.09 x10^3/uL (0-0.5); Hematocrit 35.9 % (35-47); Hemoglobin 11.9 g/dL (12.0-16.0); IMMATURE GRAN # 0.15 x10^3u/L (0.00-0.03); Lymphocyte (Absolute #) 2.25 x10^3/uL (1.0-4.6); Mean Cell Volume 96.5 fL (78-100); Mean Corpuscular Hgb Concent. 33.1 g/dL (32-36); Mean Platelet Volume 9.7 fL (7.5-11.0); Neutrophil % 75.1 % (36.0-66.0); Platelet Count 365 x10^3/uL (150-450); Red Blood Count 3.72 x10^6/uL (4.1-5.4); Red Cell Distribution Width 13.1 % (11.5-14.0)
[2023-11-11 06:18] LABS: Amphetamine,Urine NEGATIVE (NEGATIVE); Barbiturate,Urine NEGATIVE (NEGATIVE); Benzodiazepine,Urine NEGATIVE (NEGATIVE); Cocaine,Urine NEGATIVE (NEGATIVE); Methadone,Urine NEGATIVE (NEGATIVE); Opiate,Urine NEGATIVE (NEGATIVE); PCP,Urine NEGATIVE (NEGATIVE); THC,Urine POSITIVE (NEGATIVE)
[2023-11-11 06:31] LABS: Appearance Cloudy (Clear); Bacteria Few /HPF (None Seen); Bilirubin Negative (Negative); Blood Negative (Negative); Epithelial Cells Moderate /HPF (None Seen); Glucose, Urine Negative (Negative); Hyaline Casts NONE SEEN /LPF (0-2); Ketones Negative (Negative); Leukocyte Esterase Trace (Negative); Nitrite Negative (Negative); Protein,Urine Dip Negative (Negative); Urobilinogen 0.2 mg/dL (0.2)
[2023-11-11 06:32] LABS: ADD URINE CULTURE? YES (NO)
[2023-11-11] MEDS: Lactated Ringers 1,000 ML IV SCH ×2 (06:36→15:43)
[2023-11-11 06:58] LABS: ABO TYPING A; Antibody Screen NEGATIVE (NEGATIVE); RH TYPING NEGATIVE
[2023-11-11] MEDS ORDERED: TUCKS TP PRN (20:41)
[2023-11-11] MEDS ORDERED: Dermoplast Spray TP PRN (20:41)
[2023-11-12] MEDS: MOTRIN 400 MG PO PRN ×2 (03:16→19:28)
[2023-11-12 06:11] LABS: Absolute Neutrophil Ct (ANC) 9.88 x10^3/uL (1.4-6.9); BASOPHIL % 0.2 % (0.0-0.4); Basophil (Absolute #) 0.03 x10^3/uL (0-0.4); Eosinophil % 0.5 % (0.00-5.0); Eosinophil (Absolute #) 0.07 x10^3/uL (0-0.5); Hematocrit 32.5 % (35-47); Hemoglobin 10.7 g/dL (12.0-16.0); IMMATURE GRAN # 0.07 x10^3u/L (0.00-0.03); IMMATURE GRAN % 0.5 % (0.00-0.4); Lymphocyte (Absolute #) 2.34 x10^3/uL (1.0-4.6); Lymphocytes % 17.4 % (24.0-44.0); Mean Cell Volume 96.7 fL (78-100); Mean Corpuscular Hemoglobin 31.8 pg (26-32); Mean Corpuscular Hgb Concent. 32.9 g/dL (32-36); Mean Platelet Volume 9.4 fL (7.5-11.0); Monocyte (Absolute #) 1.04 x10^3/uL (0.0-1.3); Monocytes % 7.7 % (0.0-12.0); Neutrophil % 73.7 % (36.0-66.0); Platelet Count 338 x10^3/uL (150-450); Red Blood Count 3.36 x10^6/uL (4.1-5.4); White Blood Count 13.4 x10^3/uL (4.0-10.5)
[2023-11-12] MEDS: Docusate Sodium 100 MG PO SCH ×2 (08:55→09:40)
[2023-11-12] MEDS: FERREX 150 PO SCH (09:40)
[2023-11-12] MEDS: TYLENOL EXTRA STRENGTH 500 MG PO PRN (09:45)
[2023-11-12] MEDS ORDERED: Rhogam Plus 300 MCG IM ONE (10:00)
[2023-11-12] MEDS ORDERED: Adacel Vial IM ONE (15:00)
[2023-11-13] MEDS: Docusate Sodium 100 MG PO SCH ×2 (00:02→10:11)
[2023-11-13] MEDS: TYLENOL EXTRA STRENGTH 500 MG PO PRN ×2 (00:02→15:39)
[2023-11-13] MEDS: FERREX 150 PO SCH (10:11)
[2023-11-13 10:30] VITALS: RESP 14
--- NOTE | 2023-11-13 15:42 | PCM.DS ---
Discharge Summary Date of Admission: 11/11/23 12:02 Admitting Physician: OBDULIA CASTRO Consults: Consults on Case 11/11/23 06:00 Notify Anesthesia Provider PRN 11/11/23 23:52 Navigation ONCE Primary Care Provider: OBDULIA CASTRO Allergies Allergies No Known Drug Allergies Allergy (Verified 11/11/23 06:50) Hospital Summary - Hospital Course Hospital Course: patient had uncomplicated vaginal delivery on 11/11 induced electively at 39wks. no complications , had a second degree perineal laceration repaired at delivery. formula feeding - Vitals & Intake/Output Vital Signs: Vital Signs Temperature 97.7 F 11/13/23 10:00 Pulse Rate 85 11/13/23 10:00 Respiratory Rate 14 11/13/23 10:00 Blood Pressure 133/67 11/13/23 10:00 O2 Sat by Pulse Oximetry 100 11/13/23 10:00 Intake & Output: Intake & Output 11/11/23 11/12/23 11/13/23 11/14/23 11:59 11:59 11:59 11:59 Intake Total 3428 2400 Output Total 100 Balance 3328 2400 Weight 135.171 kg - Lab Result Diagrams: 11/12/23 06:05 Micro Results-Entire Visit: Microbiology 11/11/23 12:29 Urine Culture - Final Urine, Indwelling Catheter MIXED MARY; 3 OR MORE TYPES. NO PREDOMINANT ORGANISM. NO FURTHER WORKUP. PLEASE RESUBMIT IF CLINICALLY INDICATED. 11/11/23 06:00 Urine Culture - Final Clean Catch Midstream <10K NORMAL SKIN MARY PROBABLE SKIN CONTAMINANT Discharge Exam General Appearance: no apparent distress, obese Neurologic Exam: alert, oriented x 3 Respiratory Exam: normal breath sounds, lungs clear, No respiratory distress Cardiovascular Exam: regular rate/rhythm, normal heart sounds Gastrointestinal/Abdomen Exam: soft, No tenderness, No mass Extremity Exam: normal inspection, normal range of motion Skin Exam: normal color, warm, dry Final Diagnosis/Problem List - Final Discharge Diagnosis/Problem (1) Vaginal delivery Current Visit: Yes Status: Acute Code(s): O80 - ENCOUNTER FOR FULL-TERM UNCOMPLICATED DELIVERY - Discharge Disposition: Home, Self-Care Condition: Stable Prescriptions: Continue Albuterol Sulfate [Albuterol Sulfate Hfa] 8.5 gm IH Q6H PRN 7 Days #1 inh PRN Reason: Cough Ferrous Sulfate [Ferosul] 1 tablet PO DAILY Discontinued Pnv No.95/Ferrous Fum/Folic AC [ Vitamin Tablet] 1 tablet PO DAILY Additional Instructions: Please return to the OB Unit at the Hospital on November 15 for your 48 hour follow up. Follow up with: OBDULIA CASTRO MD [Primary Care Provider] - Forms: OB Discharge Instructions
[2023-11-13 16:58] VITALS: BP 130/81; PULSE 94; TEMP 98.3; O2SAT 98
== END 2023-11-13 18:35 | disposition home or self-care (01) | DRG 807 ==
LOC: OB 04:44 → OBSVTOIN 12:02
PROVIDERS: ADMIT Family Medicine; ATTEND Family Medicine
PROC: 10E0XZZ Delivery of Products of Conception, External Approach (ICD-10-PCS; principal; 2023-11-11)
PROC: 0KQM0ZZ Repair Perineum Muscle, Open Approach (ICD-10-PCS; 2023-11-11)
DX: O70.1 Second degree perineal laceration during delivery (principal); Z37.0 Single live birth; Z3A.39 39 weeks gestation of pregnancy; R03.0 Elevated blood-pressure reading, without diagnosis of hypertension; Z20.828 Contact with and (suspected) exposure to other viral communicable diseases
CPT/HCPCS: 36415; 80307; 81001; 81003; 85025; 86850; 86900; 86901; 87086; 90384; 90715; J2590; A9270-GY